=== PATIENT | female | born 1960 | race Caucasian/White ===

== ENCOUNTER → 2017-07-05 | Outpatient (CLI) | payer MEDICARE ==
[~2017-07-05] MED LIST: ALBU90OI INH; ALBU90OI6 INH; ASPI325; ASPI325 PO; CENTRUM SILVER1 EAC3 PO; CITA20 PO; CYAN1000 PO; DIPH50 PO; GEMF600; HYDACE5 PO; INS70/30I; INS70/30I SC; LEVO750 PO; LISHYD1012; LORA1 PO; METF500 PO; METO50 PO; OMEP40CA12 PO; OXYACE5T PO; Percocet 5-3251 EACH PO; RANI150 PO; RXLORA1 PO; UNKNOWN ANXIETY MED; UNKNOWN HTN MED
[2017-07-06 12:25] LABS: Protein, Urine Quantitative 69.6 mg/dL (0.0-11.9)
== END ==
LOC: LAB SHORT 10:40
PROVIDERS: Internal Medicine Nephrology
DX: N18.2 Chronic kidney disease, stage 2 (mild) (principal); D63.1 Anemia in chronic kidney disease; N25.81 Secondary hyperparathyroidism of renal origin; E55.9 Vitamin D deficiency, unspecified; E78.00 Pure hypercholesterolemia, unspecified
CPT/HCPCS: 81050; 82043; 84156

== ENCOUNTER → 2017-09-03 | Outpatient (CLI) | payer MEDICARE ==
[2017-09-03 18:28] LABS: Appearance, Urine Clear (Clear); Bilirubin, Urine Neg (Neg); Blood, Urine 2+ (Neg); Color, Urine Yellow (P-Yellow); Glucose Qualitative, Urine 4+ (Neg); Ketones, Urine Neg (Neg); Leukocyte Esterase, Urine Neg (Neg); Nitrite, Urine Neg (Neg); Protein, Urine 3+ (Neg); Urobilinogen, Urine NORM (Normal)
[2017-09-03 18:47] LABS: Bacteria Not Seen /hpf; Red Blood Cells, Urine 0-2 /hpf (0-2); Squamous Epithelial Cells Few /hpf (Few)
== END ==
LOC: LAB SHORT 14:21 → LAB 14:21
PROVIDERS: Nurse Practitioner Family
DX: N39.0 Urinary tract infection, site not specified (principal)
CPT/HCPCS: 81001

== ENCOUNTER → 2017-09-15 | Outpatient (CLI) | payer MEDICARE ==
[2017-09-15 14:04] LABS: Source, Urine Clean Catch
[2017-09-15 16:11] LABS: Bilirubin, Urine Neg (Neg); Blood, Urine 2+ (Neg); Glucose Qualitative, Urine 4+ (Neg); Ketones, Urine Neg (Neg); Leukocyte Esterase, Urine Neg (Neg); Nitrite, Urine Neg (Neg); Protein, Urine 3+ (Neg); Urobilinogen, Urine NORM (Normal)
[2017-09-15 16:21] LABS: Appearance, Urine Clear (Clear); Color, Urine Yellow (P-Yellow)
[2017-09-15 16:23] LABS: Bacteria Few /hpf; Squamous Epithelial Cells Few /hpf (Few)
== END ==
LOC: OLS 14:02 → LAB SHORT 14:02
PROVIDERS: Nurse Practitioner Family
DX: N39.0 Urinary tract infection, site not specified (principal)
CPT/HCPCS: 81001

== ENCOUNTER → 2017-09-28 | Outpatient (CLI) | payer MEDICARE ==
[2017-09-28 15:11] LABS: Source, Urine Clean Catch
[2017-09-28 16:03] LABS: Bilirubin, Urine Neg (Neg); Blood, Urine 2+ (Neg); Glucose Qualitative, Urine 4+ (Neg); Ketones, Urine Neg (Neg); Leukocyte Esterase, Urine Neg (Neg); Nitrite, Urine Neg (Neg); Protein, Urine 3+ (Neg); Urobilinogen, Urine NORM (Normal)
[2017-09-28 16:32] LABS: Appearance, Urine Clear (Clear); Color, Urine Yellow (P-Yellow)
[2017-09-28 16:35] LABS: Bacteria Not Seen /hpf; Red Blood Cells, Urine Not Seen /hpf (0-2); Squamous Epithelial Cells Not Seen /hpf (Few); White Blood Cells, Urine Not Seen /hpf (0-5)
== END ==
LOC: LAB SHORT 15:08 → OLS 15:08
PROVIDERS: Family Medicine
DX: N39.0 Urinary tract infection, site not specified (principal)
CPT/HCPCS: 81001

== ENCOUNTER 2018-02-18 15:57 | Emergency (ER) | payer MEDICARE ==
[~2018-02-18] VITALS: Ht 165.1 cm; Wt 111.1 kg
== END 2018-02-18 18:03 | disposition home or self-care (01) ==
LOC: ER 15:57
DX: S60.222A Contusion of left hand, initial encounter (principal); E11.9 Type 2 diabetes mellitus without complications; F41.9 Anxiety disorder, unspecified; K21.9 Gastro-esophageal reflux disease without esophagitis; G40.909 Epilepsy, unspecified, not intractable, without status epilepticus; Z91.038 Other insect allergy status; Z88.5 Allergy status to narcotic agent; Z88.8 Allergy status to other drugs, medicaments and biological substances; Z79.899 Other long term (current) drug therapy; Z79.4 Long term (current) use of insulin; Z79.82 Long term (current) use of aspirin; Z79.51 Long term (current) use of inhaled steroids; W18.30XA Fall on same level, unspecified, initial encounter
CPT/HCPCS: 73130; 99283-25

== ENCOUNTER 2019-09-01 16:42 | Emergency (ER) | payer MEDICARE, OTHER ==
[~2019-09-01] VITALS: Ht 165.1 cm; Wt 111.1 kg
[2019-09-01] MEDS ORDERED: Durezol5 ML (18:00)
[2019-09-01] MEDS ORDERED: ATOR20 PO (18:00)
[2019-09-01] MEDS ORDERED: FENOFIBRATE145 MG PO (18:00)
[2019-09-01] MEDS ORDERED: METFORMIN HCL500 M2 PO (18:00)
[2019-09-01] MEDS ORDERED: PREGABALIN75 MG PO (18:00)
[2019-09-01] MEDS ORDERED: [UNRECOGNIZED DRUG - OTHER] IO (18:01)
[2019-09-01 18:06] LABS: BASOPHILS ABSOLUTE AUTO 0.07 K/mm3 (0.00-0.23); BASOPHILS PERCENT AUTO 1 % (0-2); EOSINOPHILS ABSOLUTE AUTO 0.18 K/mm3 (0.00-0.68); EOSINOPHILS PERCENT AUTO 1 % (0-6); Hematocrit 41.2 % (33.0-51.0); Hemoglobin 13.7 g/dL (11.5-16.0); IMMATURE GRAN ABSOLUTE AUTO 0.06 K/mm3 (0.00-0.10); IMMATURE GRAN PERCENT AUTO 1 % (0-1); LYMPHOCYTES ABSOLUTE AUTO 2.76 K/mm3 (0.84-5.20); LYMPHOCYTES PERCENT AUTO 21 % (21-46); MONOCYTES ABSOLUTE AUTO 0.64 K/mm3 (0.16-1.47); MONOCYTES PERCENT AUTO 5 % (4-13); Mean Corpuscular HGB 28.3 pg (26.0-34.0); Mean Corpuscular HGB Conc 33.3 g/dL (31.5-36.5); Mean Corpuscular Volume 85 fL (80-100); Mean Platelet Volume 10.4 fL (9.1-12.4); NEUTROPHILS ABSOLUTE AUTO 9.25 K/mm3 (1.96-9.15); NEUTROPHILS PERCENT AUTO 71 % (41-73); Platelet Count 359 K/mm3 (150-400); RDW Coefficient Variation 12.8 % (11.7-14.2); RDW Standard Deviation 39.2 fL (35.1-46.3); Red Blood Cell Count 4.84 M/mm3 (3.80-5.20); White Blood Cell Count 12.96 K/mm3 (4.00-11.30)
[2019-09-01 18:20] LABS: International Normalized Ratio 0.93
[2019-09-01 18:46] LABS: Albumin, Blood 3.2 g/dL (3.4-5.0); Albumin/Globulin Ratio 0.7 (0.8-1.8); Bilirubin, Total 0.2 mg/dL (0.1-1.0); Bun/Creatinine Ratio 16.1 (12.0-20.0); Calcium, Blood 9.2 mg/dL (8.5-10.1); Creatinine, Blood 1.37 mg/dL (0.40-1.00); Globulin, Blood 4.7 g/dL (2.2-4.0); Potassium, Blood 4.2 mmol/L (3.5-5.5); Total Protein, Blood 7.9 g/dL (6.4-8.2)
== END 2019-09-01 21:27 | disposition home or self-care (01) ==
LOC: ER 16:42
PROVIDERS: Physician Assistant
DX: G45.9 Transient cerebral ischemic attack, unspecified (principal); E11.9 Type 2 diabetes mellitus without complications; F41.9 Anxiety disorder, unspecified; G40.909 Epilepsy, unspecified, not intractable, without status epilepticus; I10 Essential (primary) hypertension; K21.9 Gastro-esophageal reflux disease without esophagitis; Z88.5 Allergy status to narcotic agent; Z91.030 Bee allergy status; Z88.8 Allergy status to other drugs, medicaments and biological substances; Z79.4 Long term (current) use of insulin; Z79.82 Long term (current) use of aspirin; Z79.899 Other long term (current) drug therapy
CPT/HCPCS: 36415; 70450; 80053; 82947; 85025; 85610; 93005; 93010; 96374; 96375; 99284-25; J1885; J2550

== ENCOUNTER → 2020-06-19 | Outpatient (CLI) | payer MEDICARE ==
[~2020-06-19] MED LIST changes: +AMLODIPINE BES2.5 MG PO; +ASPIR 8181 M1 PO; +ATOR20 PO; +ATORVASTATIN CA40 MG PO; +AZIT250 PO; +BASAGLAR K100 UNIT/1 SC; +CYCL10 PO; +Catapres0.1 MG PO; +Durezol5 ML; +FENO145 PO; +FENOFIBRATE145 MG PO; +FISH OIL 1,2001 EAC1 PO; +METFORMIN HCL1000 M2 PO; +METFORMIN HCL500 M2 PO; +NITROGLYCERIN0.4 M3 PO; +Norco 7.5-3251 EACH PO; +OMEP20ER PO; +ONDA4ODT MM; +PANTOPRAZOLE SO40 M2 PO; +PRED20 PO; +PREG50 PO; +PREGABALIN75 MG PO; +Prinivil10 MG PO; +THERA-D2000 UNIT; +[UNRECOGNIZED DRUG - OTHER] IO
[2020-06-19 21:51] LABS: Microalbumin, Urine Quant. >6800.000 mg/L (0.000-20.000)
== END ==
LOC: LAB 12:15 → LAB SHORT 12:15
PROVIDERS: Family Medicine
DX: E78.2 Mixed hyperlipidemia (principal)
CPT/HCPCS: 81050; 82043

== ENCOUNTER 2020-08-01 08:28 | Emergency (ER) | payer MEDICARE ==
[~2020-08-01] VITALS: Ht 165.1 cm; Wt 112.5 kg
[~2020-08-01 08:28] MED LIST changes: -AZIT250 PO; -Catapres0.1 MG PO; -PRED20 PO; -THERA-D2000 UNIT
[2020-08-01 09:52] LABS: BASOPHILS ABSOLUTE AUTO 0.08 K/mm3 (0.00-0.23); BASOPHILS PERCENT AUTO 1 % (0-2); EOSINOPHILS PERCENT AUTO 3 % (0-6); Hemoglobin 11.2 g/dL (11.5-16.0); IMMATURE GRAN ABSOLUTE AUTO 0.09 K/mm3 (0.00-0.10); IMMATURE GRAN PERCENT AUTO 1 % (0-1); LYMPHOCYTES ABSOLUTE AUTO 2.76 K/mm3 (0.84-5.20); LYMPHOCYTES PERCENT AUTO 30 % (21-46); MONOCYTES ABSOLUTE AUTO 0.63 K/mm3 (0.16-1.47); MONOCYTES PERCENT AUTO 7 % (4-13); Mean Corpuscular HGB 28.3 pg (26.0-34.0); Mean Corpuscular HGB Conc 32.9 g/dL (31.5-36.5); Mean Corpuscular Volume 86 fL (80-100); Mean Platelet Volume 11.3 fL (9.1-12.4); NEUTROPHILS ABSOLUTE AUTO 5.21 K/mm3 (1.96-9.15); NEUTROPHILS PERCENT AUTO 58 % (41-73); Platelet Count 349 K/mm3 (150-400); RDW Coefficient Variation 13.2 % (11.7-14.2); RDW Standard Deviation 41.1 fL (35.1-46.3); Red Blood Cell Count 3.96 M/mm3 (3.80-5.20); White Blood Cell Count 9.07 K/mm3 (4.00-11.30)
[2020-08-01 10:01] LABS: Alanine Aminotransfer (ALT/SGP 26 U/L (12-78); Albumin, Blood 2.9 g/dL (3.4-5.0); Albumin/Globulin Ratio 0.8 (0.8-1.8); Alk Phos 50 U/L (50-136); Anion Gap 6 mmol/L (6-16); Aspartate Aminotrans (AST/SGOT 22 U/L (12-37); Bilirubin, Total 0.3 mg/dL (0.1-1.0); Blood Urea Nitrogen 27 mg/dL (8-24); Bun/Creatinine Ratio 17.3 (12.0-20.0); CO2, Blood 24 mmol/L (21-32); Calcium, Blood 8.7 mg/dL (8.5-10.1); Chloride, Blood 113 mmol/L (98-108); Creatinine, Blood 1.56 mg/dL (0.40-1.00); Globulin, Blood 3.7 g/dL (2.2-4.0); Glomerular Filtration Rate 36 (60-); Glucose, Blood 254 mg/dL (70-99); Potassium, Blood 4.1 mmol/L (3.5-5.5); Sodium, Blood 143 mmol/L (136-145); Total Protein, Blood 6.6 g/dL (6.4-8.2); Troponin I <0.015 ng/mL (0.000-0.040)
[2020-08-01] MEDS ORDERED: Catapres0.1 MG PO (12:57)
[2020-08-01] MEDS ORDERED: ALBU90OI INH (13:25)
[2020-08-01] MEDS ORDERED: PRED20 PO (13:25)
[2020-08-01] MEDS ORDERED: AZIT250 PO (13:25)
== END 2020-08-01 13:30 | disposition home or self-care (01) ==
LOC: ER 08:28
PROVIDERS: Emergency Medicine
DX: J44.0 Chronic obstructive pulmonary disease with (acute) lower respiratory infection (principal); J20.9 Acute bronchitis, unspecified; E11.9 Type 2 diabetes mellitus without complications; I10 Essential (primary) hypertension; Z79.84 Long term (current) use of oral hypoglycemic drugs; Z79.899 Other long term (current) drug therapy
CPT/HCPCS: 36415; 71045; 71260; 80053; 83880; 84484; 85025; 85379; 93005; 93010; 94640; 96374-59; 99285-25; A9270; J2930; Q9967

== ENCOUNTER → 2020-09-25 | Outpatient (CLI) | payer MEDICARE ==
[~2020-09-25] MED LIST changes: +AZIT250 PO; +Catapres0.1 MG PO; +PRED20 PO; +THERA-D2000 UNIT
[2020-09-25 19:47] LABS: Protein, Urine Quantitative 913.7 mg/dL (0.0-11.9)
== END | disposition home or self-care (01) ==
LOC: LAB SHORT 16:27 → PLD 16:27
PROVIDERS: Internal Medicine Nephrology
DX: N18.30 Chronic kidney disease, stage 3 unspecified (principal); D63.1 Anemia in chronic kidney disease; D50.9 Iron deficiency anemia, unspecified; N25.81 Secondary hyperparathyroidism of renal origin; E55.9 Vitamin D deficiency, unspecified; E78.00 Pure hypercholesterolemia, unspecified; D51.8 Other vitamin B12 deficiency anemias; D52.8 Other folate deficiency anemias; R76.9 Abnormal immunological finding in serum, unspecified; R94.5 Abnormal results of liver function studies; R94.6 Abnormal results of thyroid function studies
CPT/HCPCS: 82043; 82570; 84156

== ENCOUNTER 2020-09-26 06:49 | Day surgery (SDC) | payer MEDICARE ==
[~2020-09-26] VITALS: Ht 165.1 cm; Wt 111.7 kg
[~2020-09-26 06:49] MED LIST changes: -THERA-D2000 UNIT
--- NOTE | 2020-09-26 07:16 | NUR ---
09/26/20 0716 Fernanda Brunner 0710 TETRACAINE DROP PLACED IN LEFT EYE BY [facility] PER ORDERS. 0715 PLEDGET PLACED IN LEFT EYE PER ORDERS BY [facility].
[2020-09-26] MEDS ORDERED: THERA-D2000 UNIT (07:22)
== END 2020-09-26 08:54 | disposition home or self-care (01) ==
LOC: ORSCSDS 06:49
PROVIDERS: Ophthalmology
PROC: 08RK3JZ Replacement of Left Lens with Synthetic Substitute, Percutaneous Approach (ICD-10-PCS; principal; 2020-09-26 08:00)
DX: H25.12 Age-related nuclear cataract, left eye (principal); I10 Essential (primary) hypertension; E11.9 Type 2 diabetes mellitus without complications; K21.9 Gastro-esophageal reflux disease without esophagitis; G40.909 Epilepsy, unspecified, not intractable, without status epilepticus; E66.01 Morbid (severe) obesity due to excess calories; Z68.41 Body mass index [BMI] 40.0-44.9, adult; Z79.4 Long term (current) use of insulin; Z79.899 Other long term (current) drug therapy
CPT/HCPCS: 82947; A9270; J2001; J2250; J3301; J7040; V2632

== ENCOUNTER 2020-11-27 13:04 | Emergency (ER) | payer MEDICARE ==
[~2020-11-27] VITALS: Ht 165.1 cm; Wt 99.8 kg
[~2020-11-27 13:04] MED LIST changes: +THERA-D2000 UNIT
[2020-11-27 14:15] LABS: BASOPHILS ABSOLUTE AUTO 0.11 K/mm3 (0.00-0.23); BASOPHILS PERCENT AUTO 1 % (0-2); EOSINOPHILS PERCENT AUTO 2 % (0-6); Hematocrit 37.2 % (33.0-51.0); Hemoglobin 12.7 g/dL (11.5-16.0); IMMATURE GRAN ABSOLUTE AUTO 0.04 K/mm3 (0.00-0.10); IMMATURE GRAN PERCENT AUTO 0 % (0-1); LYMPHOCYTES ABSOLUTE AUTO 2.82 K/mm3 (0.84-5.20); LYMPHOCYTES PERCENT AUTO 26 % (21-46); MONOCYTES ABSOLUTE AUTO 0.68 K/mm3 (0.16-1.47); MONOCYTES PERCENT AUTO 6 % (4-13); Mean Corpuscular HGB 28.6 pg (26.0-34.0); Mean Corpuscular HGB Conc 34.1 g/dL (31.5-36.5); Mean Corpuscular Volume 84 fL (80-100); Mean Platelet Volume 10.4 fL (9.1-12.4); NEUTROPHILS ABSOLUTE AUTO 6.88 K/mm3 (1.96-9.15); NEUTROPHILS PERCENT AUTO 64 % (41-73); Platelet Count 359 K/mm3 (150-400); RDW Standard Deviation 39.2 fL (35.1-46.3); Red Blood Cell Count 4.44 M/mm3 (3.80-5.20); White Blood Cell Count 10.73 K/mm3 (4.00-11.30)
[2020-11-27 14:29] LABS: Albumin, Blood 3.1 g/dL (3.4-5.0); Albumin/Globulin Ratio 0.7 (0.8-1.8); Bilirubin, Total 0.3 mg/dL (0.1-1.0); Bun/Creatinine Ratio 9.7 (12.0-20.0); Calcium, Blood 9.5 mg/dL (8.5-10.1); Creatinine, Blood 1.96 mg/dL (0.40-1.00); Globulin, Blood 4.2 g/dL (2.2-4.0); Potassium, Blood 3.8 mmol/L (3.5-5.5); Total Protein, Blood 7.3 g/dL (6.4-8.2)
[2020-11-27 14:44] LABS: International Normalized Ratio 0.9; Prothrombin Time Results 9.8 Sec (9.7-11.5)
== END 2020-11-27 15:09 | disposition home or self-care (01) ==
LOC: ER 13:04
PROVIDERS: Physician Assistant
DX: R20.2 Paresthesia of skin (principal); E11.9 Type 2 diabetes mellitus without complications; I10 Essential (primary) hypertension; K21.9 Gastro-esophageal reflux disease without esophagitis; Z88.5 Allergy status to narcotic agent; Z88.8 Allergy status to other drugs, medicaments and biological substances; Z79.4 Long term (current) use of insulin; Z79.82 Long term (current) use of aspirin; Z91.030 Bee allergy status; Z79.899 Other long term (current) drug therapy
CPT/HCPCS: 36415; 70450; 80053; 82947; 85025; 85610; 93005; 93010; 99284-25

== ENCOUNTER → 2021-02-19 | Outpatient (CLI) | payer MEDICARE ==
[2021-02-22 20:17] LABS: Protein, Urine Quantitative 502.5 mg/dL (0.0-11.9)
== END | disposition home or self-care (01) ==
LOC: LAB SHORT 17:57
PROVIDERS: Internal Medicine Nephrology
DX: N18.30 Chronic kidney disease, stage 3 unspecified (principal); D63.1 Anemia in chronic kidney disease; N25.81 Secondary hyperparathyroidism of renal origin; E55.9 Vitamin D deficiency, unspecified; E78.00 Pure hypercholesterolemia, unspecified; R76.9 Abnormal immunological finding in serum, unspecified; R94.5 Abnormal results of liver function studies; R94.6 Abnormal results of thyroid function studies
CPT/HCPCS: 81050; 82043; 82570; 84156

== ENCOUNTER → 2021-04-19 | Outpatient (CLI) | payer MEDICARE ==
[2021-04-19 16:58] LABS: Appearance, Urine Clear (Clear); Color, Urine Yellow (P-Yellow); Source, Urine Clean Catch; Specific Gravity, Urine 1.015 (1.003-1.022)
[2021-04-19 16:59] LABS: Bilirubin, Urine Neg (Neg); Blood, Urine 1+ (Neg); Glucose Qualitative, Urine 3+ (Normal); Ketones, Urine Neg (Neg); Leukocyte Esterase, Urine Neg (Neg); Nitrite, Urine Neg (Neg); Protein, Urine 3+ (Neg); Urobilinogen, Urine NORM (Normal)
[2021-04-19 17:00] LABS: Bacteria Few /hpf; Red Blood Cells, Urine Rare /hpf (0-2); Renal Epithelial Few /hpf (0-Rare); Squamous Epithelial Cells Mod /hpf (Few)
== END | disposition home or self-care (01) ==
LOC: LAB SHORT 16:25 → LAB 16:25
PROVIDERS: Family Medicine
DX: R35.0 Frequency of micturition (principal)
CPT/HCPCS: 81001

== ENCOUNTER → 2021-04-23 | Outpatient (CLI) | payer MEDICARE ==
[2021-04-25 09:54] LABS: Stool Occult Bld Immuno 1 Negative (NEGATIVE)
== END | disposition home or self-care (01) ==
LOC: LAB SHORT 18:00
PROVIDERS: Family Medicine
DX: Z12.11 Encounter for screening for malignant neoplasm of colon (principal)
CPT/HCPCS: 82274

== ENCOUNTER 2021-07-21 14:06 | Emergency (ER) | payer MEDICARE ==
[~2021-07-21] VITALS: Ht 165.1 cm; Wt 94.3 kg
[2021-07-21 15:04] LABS: Albumin, Blood 2.5 g/dL (3.4-5.0); Albumin/Globulin Ratio 0.6 (0.8-1.8); Bilirubin, Total 0.2 mg/dL (0.1-1.0); Calcium, Blood 8.7 mg/dL (8.5-10.1); Creatinine, Blood 2.25 mg/dL (0.40-1.00); Globulin, Blood 4.3 g/dL (2.2-4.0); Potassium, Blood 4.8 mmol/L (3.5-5.5); Total Protein, Blood 6.8 g/dL (6.4-8.2)
[2021-07-21 15:34] LABS: BASOPHILS PERCENT AUTO 1 % (0-2); EOSINOPHILS ABSOLUTE AUTO 0.17 K/mm3 (0.00-0.68); EOSINOPHILS PERCENT AUTO 2 % (0-6); Hematocrit 37.5 % (33.0-51.0); Hemoglobin 12.6 g/dL (11.5-16.0); IMMATURE GRAN ABSOLUTE AUTO 0.05 K/mm3 (0.00-0.10); IMMATURE GRAN PERCENT AUTO 0 % (0-1); LYMPHOCYTES ABSOLUTE AUTO 2.16 K/mm3 (0.84-5.20); LYMPHOCYTES PERCENT AUTO 19 % (21-46); MONOCYTES PERCENT AUTO 5 % (4-13); Mean Corpuscular HGB 28.3 pg (26.0-34.0); Mean Corpuscular HGB Conc 33.6 g/dL (31.5-36.5); Mean Corpuscular Volume 84 fL (80-100); Mean Platelet Volume 11.1 fL (9.1-12.4); NEUTROPHILS ABSOLUTE AUTO 8.34 K/mm3 (1.96-9.15); NEUTROPHILS PERCENT AUTO 73 % (41-73); Platelet Count 283 K/mm3 (150-400); RDW Coefficient Variation 12.8 % (11.7-14.2); RDW Standard Deviation 39.4 fL (35.1-46.3); Red Blood Cell Count 4.46 M/mm3 (3.80-5.20); White Blood Cell Count 11.42 K/mm3 (4.00-11.30)
[2021-07-21] MEDS ORDERED: Norco 5-325 Ta1 EACH PO (16:34)
== END 2021-07-21 17:27 | disposition home or self-care (01) ==
LOC: ER 14:06
PROVIDERS: Physician Assistant
DX: S42.255A Nondisplaced fracture of greater tuberosity of left humerus, initial encounter for closed fracture (principal); E11.9 Type 2 diabetes mellitus without complications; I10 Essential (primary) hypertension; G40.909 Epilepsy, unspecified, not intractable, without status epilepticus; K21.9 Gastro-esophageal reflux disease without esophagitis; Z86.73 Personal history of transient ischemic attack (TIA), and cerebral infarction without residual deficits; Z88.5 Allergy status to narcotic agent; Z91.030 Bee allergy status; Z88.8 Allergy status to other drugs, medicaments and biological substances; Z79.84 Long term (current) use of oral hypoglycemic drugs; Z79.899 Other long term (current) drug therapy; Z79.4 Long term (current) use of insulin; Z79.82 Long term (current) use of aspirin; W19.XXXA Unspecified fall, initial encounter
CPT/HCPCS: 29105; 36415; 73030; 80053; 82550; 85025; 93005; 93010; 99284-25; A9270

== ENCOUNTER → 2022-05-09 | Outpatient (CLI) | payer MEDICARE, OTHER ==
[~2022-05-09] MED LIST changes: +ASPI81CH PO; +Acetaminophen325 M1 PO; +CLOP75 PO; +DICLOFENAC SOD100 GM TOP; +ELIQUIS2.5 MG PO; +ESCI20 PO; +ESCITALOPRAM OX20 MG PO; +INSULANPEN SC; +LOSA25 PO; +NITR.4SL SL; +NOVOLOG FL100 UNIT/3; +Norco 5-325 Ta1 EACH PO; +ONDA4ODT SL; +PROTONIX40 M9 PO
[2022-05-18 17:07] LABS: HPV 16 Negative (Negative); HPV 18 Negative (Negative); HPV OTHER HR TYPES Negative (Negative)
== END | disposition home or self-care (01) ==
LOC: LAB 07:40 → LAB SHORT 07:40
PROVIDERS: Family Medicine
DX: Z01.419 Encounter for gynecological examination (general) (routine) without abnormal findings (principal)
CPT/HCPCS: 87624; G0145

== ENCOUNTER 2022-09-18 10:03 | Inpatient (IN) | payer MEDICARE ==
[~2022-09-18] VITALS: Ht 165.1 cm; Wt 103.2 kg
[2022-09-18] VITALS (13 sets, daily range): BP systolic 81–193; BP diastolic 50–80
[~2022-09-18 10:03] MED LIST changes: +AMLO5 PO; -AMLODIPINE BES2.5 MG PO; +ATOR80 PO; -ATORVASTATIN CA40 MG PO; -NOVOLOG FL100 UNIT/3; +NOVOLOG FL100 UNIT/3 SC; +PANT40 PO; -PROTONIX40 M9 PO
[2022-09-18 10:50] LABS: Calcium, Ionized (POC) 1.22 mmol/L (1.10-1.46); Chloride (POC) 109 mmol/L (98-108); Creatinine (POC) 4.2 mg/dL (0.6-1.0); Glucose (ISTAT POC) 117 mg/dL (70-99); Hemoglobin (POC) 9.9 g/dL (12.0-16.0); Potassium (POC) 5.9 mmol/L (3.5-5.5); Sodium (POC) 139 mmol/L (135-148); Total CO2 (POC) 23 mmol/L (21-32)
[2022-09-18 11:02] LABS: BASOPHILS ABSOLUTE AUTO 0.08 K/mm3 (0.00-0.23); BASOPHILS PERCENT AUTO 1 % (0-2); EOSINOPHILS ABSOLUTE AUTO 0.33 K/mm3 (0.00-0.68); EOSINOPHILS PERCENT AUTO 3 % (0-6); Hematocrit 31.2 % (33.0-51.0); Hemoglobin 10.4 g/dL (11.5-16.0); IMMATURE GRAN ABSOLUTE AUTO 0.09 K/mm3 (0.00-0.10); IMMATURE GRAN PERCENT AUTO 1 % (0-1); LYMPHOCYTES ABSOLUTE AUTO 2.59 K/mm3 (0.84-5.20); LYMPHOCYTES PERCENT AUTO 24 % (21-46); MONOCYTES ABSOLUTE AUTO 0.55 K/mm3 (0.16-1.47); MONOCYTES PERCENT AUTO 5 % (4-13); Mean Corpuscular HGB 29.1 pg (26.0-34.0); Mean Corpuscular HGB Conc 33.3 g/dL (31.5-36.5); Mean Corpuscular Volume 87 fL (80-100); Mean Platelet Volume 9.7 fL (9.1-12.4); NEUTROPHILS ABSOLUTE AUTO 7.09 K/mm3 (1.96-9.15); NEUTROPHILS PERCENT AUTO 66 % (41-73); NRBC ABSOLUTE 0.02 K/mm3 (0.00-0.02); NRBC Auto 0.2 /100 WBC (0.0-0.2); Platelet Count 288 K/mm3 (150-400); RDW Coefficient Variation 13.4 % (11.7-14.2); RDW Standard Deviation 42.1 fL (35.1-46.3); Red Blood Cell Count 3.58 M/mm3 (3.80-5.20); White Blood Cell Count 10.73 K/mm3 (4.00-11.30)
[2022-09-18 11:24] LABS: Bun/Creatinine Ratio 13.8 (12.0-20.0); Calcium, Blood 8.7 mg/dL (8.5-10.1); Creatinine, Blood 3.76 mg/dL (0.40-1.00); Potassium, Blood 5.7 mmol/L (3.5-5.5)
[2022-09-18 11:29] LABS: International Normalized Ratio 1.01; Prothrombin Time Results 10.6 Sec (9.7-11.5)
[2022-09-18] MEDS ORDERED: BASAGLAR K100 UNIT/1 SC (16:25)
[2022-09-18] MEDS ORDERED: MULVITA PO (16:29)
[2022-09-18] MEDS ORDERED: CARV3.125 PO (16:31)
--- NOTE | 2022-09-18 17:16 | NUR ---
SHIFT ASSESSMENT PATIENT ARRIVED ON FLOOR AT 1405. AO3, UNABLE TO STATE DATE OR DAY OF WEEK. DENIES PAIN. NEW PORT TO UPPER CHEST PLACED THIS AFTERNOON, CLEAN AND DRY, TRANSPARENT DRESSING IN PLACE. DENIES ANY CHEST PAIN OR SHORTNESS OF BREATH AT THIS TIME. WILL CONTINUE TO MONITOR.
--- NOTE | 2022-09-18 17:42 | NUR ---
"Spirtual Care | Pt. Request Pt. is awake in bed, getting dialysis when she welcomes my visit. Child Welfare Caseworker is present. Pt. is pleasant. Pt. does verbalize some theological questions. Consider matters of zackary and belief. Pt. displays evidence of acceptance and agreement. Facilitate a short life review and listen with empathy and a calming presence. Prayed with Pt. Pt. verbalized gratitude for the spiritual care visit, and welcomed this concrete form setter and finisher to return in the morning."
--- NOTE | 2022-09-18 18:20 | NUR ---
THIS DIRECTOR OF PLANT OPERATIONS HAS REVIEWED AND AGREES WITH ALL NOTES AND ASSESSMENTS BY YONY WALLY.
--- NOTE | 2022-09-18 19:20 | NUR ---
EVENT NOTE RAPID REPSONSE TEAM CALLED AT 1845 BY DIALYSIS NURSE. PATIENT HAD ALTERED LOC DURING FIRST DIALYSIS TREATMENT WHILE UP TO THE COMMODE. PATIENT ASSISTED BACK TO BED. DR BRUNNER ORDERED SERUM POTASSIUM AND TELEMETRY. PATIENT RETURNED TO BASELINE MENTAL STATUS AND BLOOD PRESSURE AFTER LAYING FLAT IN BED FOR SEVERAL MINUTES.
[2022-09-19] VITALS (16 sets, daily range): BP systolic 83–187; BP diastolic 49–108
[2022-09-19 05:27] LABS: Hematocrit 30.8 % (33.0-51.0); Hemoglobin 10.1 g/dL (11.5-16.0)
[2022-09-19 06:15] LABS: Albumin, Blood 2.6 g/dL (3.4-5.0); Anion Gap 2 mmol/L (6-16); Blood Urea Nitrogen 39 mg/dL (8-24); Bun/Creatinine Ratio 12.6 (12.0-20.0); CO2, Blood 26 mmol/L (21-32); Calcium, Blood 8.4 mg/dL (8.5-10.1); Chloride, Blood 110 mmol/L (98-108); Creatinine, Blood 3.09 mg/dL (0.40-1.00); Glomerular Filtration Rate 17 (60-); Glucose, Blood 109 mg/dL (70-99); Magnesium, Blood 1.8 mg/dL (1.6-2.4); Phosphorus, Blood 3.9 mg/dL (2.5-4.9); Potassium, Blood 4.4 mmol/L (3.5-5.5); Sodium, Blood 138 mmol/L (136-145)
--- NOTE | 2022-09-19 07:45 | NUR ---
EVENT NOT PATIENT SCAR JUST AFTER SHIFT CHANGE. STUDENT SPECIALIST NOTING RYTHM IN 20-30 RANGE OCCAISONAL ASYSTOLE, PATIENT AWAKE CO DIZZY AND LIGHTHEADED AND VOMITING, JUST CAME BACK FROM BATHROOM. BP 200/95, EKG OBTAINED. PATIENT STATES SHE IS FEELING BETTER. DR KHAN ORDERED ORTHOSTATICS BEFORE GIVING THE MIDODRINE ORDERED BY DR WALTER THIS AM. TELE MONITOR CALLED AGAIN AND STATES PATIENT WAS ASYSTOLE BUT NOW 80 BPM. BP AT 7:34AM 152/78, HR 79. PATIENT IS SCHEDULED FOR ADDITIONAL DIALYSIS TODAY. PATIENT TRANSFERRED TO PCU AND REPORT GIVEN TO ROSALINDA BHAKTA AT 7:40AM.
--- NOTE | 2022-09-19 07:55 | NUR ---
AO, VSS, CALLED APPROPRIATELY FOR MOST OF SHIFT AFTER INITIAL RAPID RESPONSE TEAM AT START OF SHIFT. DURING SHIFT CHANGE PATIENT BECAME BRADYCARDIC, NAUSEOUS AND VOMITING. PT HAD AMBULATED WITH SBA TO TOILET X2 DURING THE NIGHT WITH NO SYMPTOMS. PT TRANSFERRED FOR HIGHER LEVEL CARE.
[2022-09-19 08:49] LABS: Albumin, Blood 2.8 g/dL (3.4-5.0); Anion Gap 3 mmol/L (6-16); Blood Urea Nitrogen 37 mg/dL (8-24); Bun/Creatinine Ratio 11.5 (12.0-20.0); CO2, Blood 25 mmol/L (21-32); Calcium, Blood 8.4 mg/dL (8.5-10.1); Chloride, Blood 110 mmol/L (98-108); Creatinine, Blood 3.22 mg/dL (0.40-1.00); Glomerular Filtration Rate 16 (60-); Glucose, Blood 128 mg/dL (70-99); Magnesium, Blood 1.8 mg/dL (1.6-2.4); Phosphorus, Blood 3.7 mg/dL (2.5-4.9); Potassium, Blood 4.7 mmol/L (3.5-5.5); Sodium, Blood 138 mmol/L (136-145)
--- NOTE | 2022-09-19 10:42 | NUR ---
Pt. is awake in bed and welcomes my visit. Pt. is pleasant, and is very aware of her crashing last evening during dialysis. Re-esablish rapport. Pt. displays evidence of being engaged and complliant with her care. Prayed with Pt. Pt. verbalized gratitude for the spiritual care visit. Will remain available to the Pt.
--- NOTE | 2022-09-19 11:19 | NUR ---
THIS SPECIALTY THERAPIST HAS REVIEWED WALLY RNs NOTE AND AGREES WITH IT.
--- NOTE | 2022-09-19 18:04 | NUR ---
SHIFT SUMMARY PT ARRIVED FROM MEDICAL FLOOR THIS AM, REPORT RECEIVED FROM MEDICAL FLOOR RN. PT A&OX4. SP02>90% ON RA. TELEMETRY READS NSR, HR 60'S-90'S. POSITIVE ORTHSTATICS. MIDODRINE GIVEN AND EKG DONE PER MD BURDEN. PT C/O OF DIZZYNESS WHEN STANDING. VOIDED W/ ASSISTANCE FWW AND GB TO BSC. NO BM THIS SHIFT. ECHO DONE THIS AM. PT TO DIALYSIS IN AFTERNOON. STATES SHE FEELS "MUCH BETTER THAN YESTERDAY" AFTER DIALYSIS. PT IN ROOM VISITING WITH FAMILY. CALL LIGHT IN REACH.
[2022-09-20 03:03] VITALS: BP 144/61
--- NOTE | 2022-09-20 03:16 | NUR ---
SHIFT SUMMARY PT IS A&OX4, HAS BEEN IN BED ALL SHIFT, AND SHE CALLS APPROPRIATELY. THE PT WAS HYPERTENSIVE AT THE START OF SHIFT AND WAS MEDICATED PER EMAR. BP HAS STABILIZED. PT HAS NOT REPORTED FEELING DIZZY OR LIGHT HEADED WHILE LAYING IN BED. SHE DENIES ANGINA, CHEST PRESSURE, SOB, AND PAIN. ON TELE SHE HAS BEEN SR, AND IS ON ROOM AIR W/ SP02 >90%. BED IS IN LOW, CALL LIGHT IS IN REACH. SEE NOTES FOR ANY UPDATES.
[2022-09-20 04:49] LABS: Hematocrit 28.1 % (33.0-51.0); Hemoglobin 9.1 g/dL (11.5-16.0)
[2022-09-20 05:16] LABS: Albumin, Blood 2.5 g/dL (3.4-5.0); Anion Gap 4 mmol/L (6-16); Blood Urea Nitrogen 33 mg/dL (8-24); Bun/Creatinine Ratio 10.6 (12.0-20.0); CO2, Blood 29 mmol/L (21-32); Calcium, Blood 8.2 mg/dL (8.5-10.1); Chloride, Blood 105 mmol/L (98-108); Creatinine, Blood 3.12 mg/dL (0.40-1.00); Glomerular Filtration Rate 16 (60-); Glucose, Blood 138 mg/dL (70-99); Magnesium, Blood 1.9 mg/dL (1.6-2.4); Phosphorus, Blood 4.1 mg/dL (2.5-4.9); Potassium, Blood 4.1 mmol/L (3.5-5.5); Sodium, Blood 138 mmol/L (136-145)
[2022-09-20 07:58] VITALS: BP 149/71
[2022-09-20 12:23] VITALS: BP 145/76
[2022-09-20 17:13] VITALS: BP 184/64
[2022-09-20 17:23] VITALS: BP 164/89
--- NOTE | 2022-09-20 17:29 | NUR ---
BP 184/59, HR 62. RE-CHECKED, 164/89, HR 64. REPORTED THIS TO DR. KHAN, ORDERS PENDING.
--- NOTE | 2022-09-20 18:53 | NUR ---
SHIFT SUMMARY: HYPERTENSIVE THIS EVENING AFTER TRANSFER FROM PCU; DR. KHAN AWARE. NO EVENTS ON TELEMETRY, SR 60-70'S. PERMACATH IN RU CHEST WNL, DRESSING INTACT. DRESSING ON R NECK INCISION REINFORCED. DENIED PAIN. STILL SLIGHTLY DIZZY WHEN GETTING OOB TO BSC, BUT RECOVERS WELL. EDUCATION GIVEN FOR DIALYSIS DIET. NO CHANGES IN NEURO EXAM. IS LOOKING FORWARD TO GOING HOME SOON.
[2022-09-20 19:33] VITALS: BP 175/60
[2022-09-21] VITALS (7 sets, daily range): BP systolic 147–195; BP diastolic 60–79
--- NOTE | 2022-09-21 04:16 | NUR ---
SHIFT SUMMARY 62 YR F ADMITTED ON 09/19/22 FOR ESRD. FULL CODE. BLOOD PRESSURE GOT UP0 TO 180/73 AND PRN HYDRALAZINE WAS GIVEN. PT IS ABLE TO GET UP TO BEDSIDE COMMODE W/ 1 PERSON ASSIST. NO C/O DIZZINESS UPON STANDING. SHE HAS RESTED COMFORTABLY FOR MOST OF THIS SHIFT.
[2022-09-21 05:08] LABS: HBSAG SCREEN Negative (Negative); HCV AB Non Reactive (Non Reactive); HEP A AB, IGM Negative (Negative); HEP B CORE AB, IGM Negative (Negative)
[2022-09-21 05:30] LABS: BASOPHILS ABSOLUTE AUTO 0.05 K/mm3 (0.00-0.23); BASOPHILS PERCENT AUTO 0 % (0-2); EOSINOPHILS ABSOLUTE AUTO 0.47 K/mm3 (0.00-0.68); EOSINOPHILS PERCENT AUTO 4 % (0-6); Hematocrit 28.6 % (33.0-51.0); Hemoglobin 9.5 g/dL (11.5-16.0); IMMATURE GRAN ABSOLUTE AUTO 0.02 K/mm3 (0.00-0.10); IMMATURE GRAN PERCENT AUTO 0 % (0-1); LYMPHOCYTES ABSOLUTE AUTO 2.88 K/mm3 (0.84-5.20); LYMPHOCYTES PERCENT AUTO 25 % (21-46); MONOCYTES ABSOLUTE AUTO 0.91 K/mm3 (0.16-1.47); MONOCYTES PERCENT AUTO 8 % (4-13); Mean Corpuscular HGB 29.1 pg (26.0-34.0); Mean Corpuscular HGB Conc 33.2 g/dL (31.5-36.5); Mean Corpuscular Volume 88 fL (80-100); Mean Platelet Volume 9.7 fL (9.1-12.4); NEUTROPHILS ABSOLUTE AUTO 7.09 K/mm3 (1.96-9.15); NEUTROPHILS PERCENT AUTO 62 % (41-73); Platelet Count 287 K/mm3 (150-400); RDW Coefficient Variation 13.7 % (11.7-14.2); RDW Standard Deviation 41.8 fL (35.1-46.3); Red Blood Cell Count 3.26 M/mm3 (3.80-5.20); White Blood Cell Count 11.42 K/mm3 (4.00-11.30)
[2022-09-21 06:14] LABS: Albumin, Blood 2.7 g/dL (3.4-5.0); Anion Gap 5 mmol/L (6-16); Blood Urea Nitrogen 36 mg/dL (8-24); Bun/Creatinine Ratio 9.8 (12.0-20.0); CO2, Blood 27 mmol/L (21-32); Calcium, Blood 8.7 mg/dL (8.5-10.1); Chloride, Blood 108 mmol/L (98-108); Creatinine, Blood 3.69 mg/dL (0.40-1.00); Glomerular Filtration Rate 13 (60-); Glucose, Blood 126 mg/dL (70-99); Phosphorus, Blood 3.9 mg/dL (2.5-4.9); Potassium, Blood 4.2 mmol/L (3.5-5.5); Sodium, Blood 140 mmol/L (136-145)
--- NOTE | 2022-09-21 16:16 | NUR ---
SHIFT SUMMARY: PATIENT A&OX4. PLEASANT AND COOPERATIVE c CARE. USES CALL LIGHT APPROPRIATELY AND ABLE TO MAKE NEEDS KNOWN. HYPERTENSIVE BEGINNING OF SHIFT AND POSITIVE FOR ORTHOSTATIC. BP DROPPED ABOUT 20 POINTS FROM LAYING FLAT IN BED, TO SITTING AND STANDING. PATIENT REPORTS SLIGHT DIZZINESS BUT RECOVERED RIGHT AWAY. DR. KHAN IS AWARE OF THIS ISSUE. NIFIDEPINE DOSE WAS INCREASE TO 60 MG PO DAILY. PATIENT BP HAS IMPROVED LAST SET OF BP AT AROUND 1604 147/69 c HR OF 78 BPM. NO DIALYSIS TODAY. PATIENT DENIES CP/PRESSURE, N/V, SOB AND GENERALIZED PAIN. ON TELE, SR HR IN THE HIGH 80'S BPM c 1ST DEGREE HB. BS RANGES 121-169 THIS SHIFT. RECEIVED SCHEDULED MEDS PER EMAR. PATIENT STILL VOID c 750 MLS OF URINE, 2 UNMEASURED AND 1 INCONTINENCE VOID THIS SHIFT. VITAL SIGNS REVIEWED. PIV TO FOREARM SALINE LOCKED. CALL LIGHT IN REACH.
[2022-09-22] VITALS (19 sets, daily range): BP systolic 81–182; BP diastolic 45–90
--- NOTE | 2022-09-22 03:43 | NUR ---
SHIFT SUMMARY NOC PT A/O X 4. PLEASANT AND COOPERATIVE WITH CARE. PT HAD PERM CATH PLACED IN [facility] ON 09/18/22 TO BEGIN DIALYSIS DUE TO ESRD DX. BP STABLE 151/60. PT VOIDED X 2 BSC WITH UOP OF 550ML. PT DID NOT REPORT DIZZYNESS WHEN TRANSFERING BETWEEN BED/BSC. CBG 230 WITH ONLY SCHEDULED 18 UNITS OF LONG ACTING INSULIN ADMINISTERED. PT ON TELE AT SINUS RHYTHM HR 74 BPM. LAST DIALYSIS SESSION WAS 09/20/22. PT [facility]. PT IS CURRENTLY RESTING WITH BED IN LOWEST POSITION, AND CALL LIGHT WITHIN REACH.
[2022-09-22 05:17] LABS: BASOPHILS ABSOLUTE AUTO 0.05 K/mm3 (0.00-0.23); BASOPHILS PERCENT AUTO 1 % (0-2); EOSINOPHILS PERCENT AUTO 4 % (0-6); Hematocrit 30.8 % (33.0-51.0); Hemoglobin 10.2 g/dL (11.5-16.0); IMMATURE GRAN ABSOLUTE AUTO 0.02 K/mm3 (0.00-0.10); IMMATURE GRAN PERCENT AUTO 0 % (0-1); LYMPHOCYTES ABSOLUTE AUTO 2.53 K/mm3 (0.84-5.20); LYMPHOCYTES PERCENT AUTO 25 % (21-46); MONOCYTES PERCENT AUTO 8 % (4-13); Mean Corpuscular HGB 29.1 pg (26.0-34.0); Mean Corpuscular HGB Conc 33.1 g/dL (31.5-36.5); Mean Corpuscular Volume 88 fL (80-100); Mean Platelet Volume 9.6 fL (9.1-12.4); NEUTROPHILS PERCENT AUTO 63 % (41-73); Platelet Count 291 K/mm3 (150-400); RDW Coefficient Variation 14.2 % (11.7-14.2); RDW Standard Deviation 42.7 fL (35.1-46.3); Red Blood Cell Count 3.51 M/mm3 (3.80-5.20)
[2022-09-22 05:36] LABS: Albumin, Blood 2.6 g/dL (3.4-5.0); Anion Gap 4 mmol/L (6-16); Blood Urea Nitrogen 43 mg/dL (8-24); Bun/Creatinine Ratio 10.6 (12.0-20.0); CO2, Blood 27 mmol/L (21-32); Calcium, Blood 8.6 mg/dL (8.5-10.1); Chloride, Blood 109 mmol/L (98-108); Creatinine, Blood 4.05 mg/dL (0.40-1.00); Glomerular Filtration Rate 12 (60-); Glucose, Blood 125 mg/dL (70-99); Phosphorus, Blood 4.9 mg/dL (2.5-4.9); Potassium, Blood 4.3 mmol/L (3.5-5.5); Sodium, Blood 140 mmol/L (136-145)
--- NOTE | 2022-09-22 09:46 | NUR ---
pt laying in bed eating breakfast, a/ox4, pleasant and cooperative with care, follows commands well, denies pain, states she slept good, lungs are clear t/o, resp even and unlabored, no cough noted, on r/a, hrr, no edema noted, ppp+1, cap refill <3 sec, vs stable, afebrile, piv site to left wrist site is clear and patent, btx4, abd flat soft nontneder, voids with out diff, skin c/w/d, abel arcos, call light in reach.
--- NOTE | 2022-09-22 19:25 | NUR ---
pt complaining about wrist piv, states it really hurting, removed intact, pt had dialysis today, v.s. remain stable, no further changes this shift. call light in reach.
[2022-09-23 03:01] VITALS: BP 163/105
[2022-09-23 03:05] VITALS: BP 152/57
--- NOTE | 2022-09-23 04:28 | NUR ---
SHIFT SUMMARY NO ACUTE CHANGES THIS SHIFT, SPOKE WITH DR. CALLAHAN AND HE SAID THEY ARE WAITING FOR A DIALYSIS BED BEFORE DISCHARGE. SHE HAD NO COMPLAINTS THIS SHIFT AND SLEPT THROUGHOUT THE NIGHT. WILL REPORT TO ONCOMING NURSE.
[2022-09-23 06:47] LABS: Albumin, Blood 2.7 g/dL (3.4-5.0); Anion Gap 4 mmol/L (6-16); Blood Urea Nitrogen 30 mg/dL (8-24); Bun/Creatinine Ratio 8.3 (12.0-20.0); CO2, Blood 28 mmol/L (21-32); Calcium, Blood 8.4 mg/dL (8.5-10.1); Chloride, Blood 100 mmol/L (98-108); Creatinine, Blood 3.62 mg/dL (0.40-1.00); Glomerular Filtration Rate 14 (60-); Glucose, Blood 118 mg/dL (70-99); Magnesium, Blood 1.9 mg/dL (1.6-2.4); Phosphorus, Blood 4.5 mg/dL (2.5-4.9); Potassium, Blood 3.9 mmol/L (3.5-5.5); Sodium, Blood 132 mmol/L (136-145)
[2022-09-23 06:53] LABS: Hematocrit 32.1 % (33.0-51.0); Hemoglobin 10.7 g/dL (11.5-16.0)
[2022-09-23 07:53] VITALS: BP 145/60
[2022-09-23] MEDS ORDERED: NIFE60ER PO (12:55)
--- NOTE | 2022-09-23 14:22 | NUR ---
PT AWAKE DURING SHIFT REPORT THIS AM. PLEASANT AND CO-OP WITH CARE. TOURS HOSTESS CALLED TO REPORT NO DIALYSIS TODAY, BUT CHAIR AVAILABLE AT [facility] FOR 0625 IN AM. PT TO GO TO [facility] TODAY @ 1500 FOR INTAKE PAPERWORK. PT NOW SCHEDULED FOR DIALYSIS M,W,F. PT UP TO BSC WITH SBA. SITTING UP TO EOB FOR MEALS. SITTING IN CHAIR AT BS LOOKING OUT WINDOW AFTER BREAKFAST. DR CALLAHAN NOTIFIED OF APPOINTMENT FOR PT AT [facility]. D/C ORDERS PLACED. MEDS FAXED PER PT CHART. PT'S SISTER NOTIFIED OF D/C AND HERE TO PICK PT UP AND TAKE HERE TO APPOINTMENT AND THEN HOME TO [facility] FOR [facility]. PT ASSISTED OUT TO CAR VIA W/C WITH ALL BELONGINGS.
== END 2022-09-23 13:41 | disposition home or self-care (01) | DRG 291 ==
LOC: ER 10:03 → MEDS 10:04 → PCU 09-19 07:36 → MEDS 09-19 13:21 → PCU 09-19 16:10 → MEDS 09-20 15:07 → ENPENDDIS 09-23 12:05 → MEDS 09-23 13:41
PROVIDERS: Emergency Medicine; Internal Medicine Nephrology; ADMIT Family Medicine
PROC: 0JH63XZ Insertion of Tunneled Vascular Access Device into Chest Subcutaneous Tissue and Fascia, Percutaneous Approach (ICD-10-PCS; principal; 2022-09-18)
PROC: 02HV33Z Insertion of Infusion Device into Superior Vena Cava, Percutaneous Approach (ICD-10-PCS; 2022-09-18)
PROC: B5181ZA Fluoroscopy of Superior Vena Cava using Low Osmolar Contrast, Guidance (ICD-10-PCS; 2022-09-18)
PROC: B548ZZA Ultrasonography of Superior Vena Cava, Guidance (ICD-10-PCS; 2022-09-18)
PROC: 5A1D70Z Performance of Urinary Filtration, Intermittent, Less than 6 Hours Per Day (ICD-10-PCS; 2022-09-19)
DX: I13.2 Hypertensive heart and chronic kidney disease with heart failure and with stage 5 chronic kidney disease, or end stage renal disease (principal); N18.6 End stage renal disease; E87.1 Hypo-osmolality and hyponatremia; E87.20 Acidosis, unspecified; E11.22 Type 2 diabetes mellitus with diabetic chronic kidney disease; F41.9 Anxiety disorder, unspecified; G89.29 Other chronic pain; M25.562 Pain in left knee; G40.909 Epilepsy, unspecified, not intractable, without status epilepticus; K21.9 Gastro-esophageal reflux disease without esophagitis; R41.3 Other amnesia; H81.09 Meniere's disease, unspecified ear; E21.3 Hyperparathyroidism, unspecified; R00.1 Bradycardia, unspecified; D63.1 Anemia in chronic kidney disease; E87.5 Hyperkalemia; I50.9 Heart failure, unspecified; E86.9 Volume depletion, unspecified; I95.9 Hypotension, unspecified; I25.10 Atherosclerotic heart disease of native coronary artery without angina pectoris; E66.9 Obesity, unspecified; E88.09 Other disorders of plasma-protein metabolism, not elsewhere classified; Z68.37 Body mass index [BMI] 37.0-37.9, adult; Z88.8 Allergy status to other drugs, medicaments and biological substances; Z86.73 Personal history of transient ischemic attack (TIA), and cerebral infarction without residual deficits; Z85.43 Personal history of malignant neoplasm of ovary; Z79.51 Long term (current) use of inhaled steroids; Z79.01 Long term (current) use of anticoagulants; Z79.82 Long term (current) use of aspirin; Z79.02 Long term (current) use of antithrombotics/antiplatelets; Z79.4 Long term (current) use of insulin; Z90.49 Acquired absence of other specified parts of digestive tract; Z90.721 Acquired absence of ovaries, unilateral; Z98.890 Other specified postprocedural states; Z79.899 Other long term (current) drug therapy; Z91.030 Bee allergy status; Z88.5 Allergy status to narcotic agent; Z90.710 Acquired absence of both cervix and uterus
CPT/HCPCS: 36415; 36558; 71045; 76937; 77001; 80047; 80048; 80069; 80074; 82330; 82947; 83735; 84132; 84484; 85014; 85018; 85025; 85610; 85730; 86317; 86704; 86850; 86900; 86901; 93005; 93010; 93306; 94760; 99152; 99285-25; A9270; C1750; C1769; C1894; G0378; J0360; J0881; J1644; J1815; J2250; J3010; J7030; J7050

== ENCOUNTER 2022-11-18 04:46 | Emergency (ER) | payer MEDICARE, OTHER ==
[~2022-11-18] VITALS: Ht 165.1 cm; Wt 90.7 kg
[~2022-11-18 04:46] MED LIST changes: +CARV3.125 PO; +MULVITA PO; +NIFE60ER PO
[2022-11-18] MEDS ORDERED: AMLO5 PO (05:16)
[2022-11-18] MEDS ORDERED: ELIQUIS2.5 MG PO (05:17)
[2022-11-18] MEDS ORDERED: Calcium Acetat667 MG PO (05:17)
[2022-11-18 05:24] LABS: BASOPHILS ABSOLUTE AUTO 0.08 K/mm3 (0.00-0.23); BASOPHILS PERCENT AUTO 1 % (0-2); EOSINOPHILS ABSOLUTE AUTO 0.34 K/mm3 (0.00-0.68); EOSINOPHILS PERCENT AUTO 3 % (0-6); Hematocrit 33.6 % (33.0-51.0); Hemoglobin 11.3 g/dL (11.5-16.0); IMMATURE GRAN ABSOLUTE AUTO 0.04 K/mm3 (0.00-0.10); IMMATURE GRAN PERCENT AUTO 0 % (0-1); LYMPHOCYTES ABSOLUTE AUTO 3.29 K/mm3 (0.84-5.20); LYMPHOCYTES PERCENT AUTO 30 % (21-46); MONOCYTES ABSOLUTE AUTO 0.85 K/mm3 (0.16-1.47); MONOCYTES PERCENT AUTO 8 % (4-13); Mean Corpuscular HGB 29.2 pg (26.0-34.0); Mean Corpuscular HGB Conc 33.6 g/dL (31.5-36.5); Mean Corpuscular Volume 87 fL (80-100); Mean Platelet Volume 10.7 fL (9.1-12.4); NEUTROPHILS ABSOLUTE AUTO 6.42 K/mm3 (1.96-9.15); NEUTROPHILS PERCENT AUTO 58 % (41-73); Platelet Count 271 K/mm3 (150-400); RDW Coefficient Variation 14.6 % (11.7-14.2); RDW Standard Deviation 45.9 fL (35.1-46.3); Red Blood Cell Count 3.87 M/mm3 (3.80-5.20); White Blood Cell Count 11.02 K/mm3 (4.00-11.30)
[2022-11-18 05:44] LABS: Bun/Creatinine Ratio 9.6 (12.0-20.0); Calcium, Blood 8.7 mg/dL (8.5-10.1); Creatinine, Blood 4.27 mg/dL (0.40-1.00); Potassium, Blood 4.1 mmol/L (3.5-5.5)
[2022-11-18 05:47] LABS: International Normalized Ratio 0.97; Prothrombin Time Results 10.2 Sec (9.7-11.5)
[2022-11-18 09:00] VITALS: BP 139/75
[2022-11-28] MEDS ORDERED: LOKELMA10 GM PO (13:59)
== END 2022-11-18 12:00 | disposition short-term general hospital (02) ==
LOC: ER 04:46
PROVIDERS: Emergency Medicine
DX: T83.021A Displacement of indwelling urethral catheter, initial encounter (principal); I25.10 Atherosclerotic heart disease of native coronary artery without angina pectoris; I12.9 Hypertensive chronic kidney disease with stage 1 through stage 4 chronic kidney disease, or unspecified chronic kidney disease; E11.22 Type 2 diabetes mellitus with diabetic chronic kidney disease; N18.9 Chronic kidney disease, unspecified; G40.909 Epilepsy, unspecified, not intractable, without status epilepticus; Z86.73 Personal history of transient ischemic attack (TIA), and cerebral infarction without residual deficits; Z85.43 Personal history of malignant neoplasm of ovary; Z88.5 Allergy status to narcotic agent; Z88.8 Allergy status to other drugs, medicaments and biological substances; Z91.030 Bee allergy status; Z79.82 Long term (current) use of aspirin; Z79.02 Long term (current) use of antithrombotics/antiplatelets; Z79.4 Long term (current) use of insulin; Z79.899 Other long term (current) drug therapy; X58.XXXA Exposure to other specified factors, initial encounter
CPT/HCPCS: 80048; 85025; 85610; 93005; 93010; 99285-25

== ENCOUNTER 2022-11-25 08:25 | Emergency (ER) | payer MEDICARE, OTHER ==
[~2022-11-25] VITALS: Ht 165.1 cm; Wt 99.8 kg
[~2022-11-25 08:25] MED LIST changes: +Calcium Acetat667 MG PO
[2022-11-25 09:03] LABS: BASOPHILS ABSOLUTE AUTO 0.09 K/mm3 (0.00-0.23); BASOPHILS PERCENT AUTO 1 % (0-2); EOSINOPHILS ABSOLUTE AUTO 0.24 K/mm3 (0.00-0.68); EOSINOPHILS PERCENT AUTO 2 % (0-6); Hematocrit 32.8 % (33.0-51.0); Hemoglobin 11.3 g/dL (11.5-16.0); IMMATURE GRAN ABSOLUTE AUTO 0.06 K/mm3 (0.00-0.10); IMMATURE GRAN PERCENT AUTO 0 % (0-1); LYMPHOCYTES ABSOLUTE AUTO 2.55 K/mm3 (0.84-5.20); LYMPHOCYTES PERCENT AUTO 18 % (21-46); MONOCYTES ABSOLUTE AUTO 0.67 K/mm3 (0.16-1.47); MONOCYTES PERCENT AUTO 5 % (4-13); Mean Corpuscular HGB 29.4 pg (26.0-34.0); Mean Corpuscular HGB Conc 34.5 g/dL (31.5-36.5); Mean Corpuscular Volume 85 fL (80-100); Mean Platelet Volume 10.6 fL (9.1-12.4); NEUTROPHILS ABSOLUTE AUTO 10.61 K/mm3 (1.96-9.15); NEUTROPHILS PERCENT AUTO 75 % (41-73); Platelet Count 288 K/mm3 (150-400); RDW Coefficient Variation 14.2 % (11.7-14.2); RDW Standard Deviation 43.8 fL (35.1-46.3); Red Blood Cell Count 3.85 M/mm3 (3.80-5.20); White Blood Cell Count 14.22 K/mm3 (4.00-11.30)
[2022-11-25 09:18] LABS: Albumin, Blood 3.2 g/dL (3.4-5.0); Albumin/Globulin Ratio 0.9 (0.8-1.8); Bilirubin, Total 0.3 mg/dL (0.1-1.0); Bun/Creatinine Ratio 11.5 (12.0-20.0); Calcium, Blood 8.9 mg/dL (8.5-10.1); Creatinine, Blood 5.92 mg/dL (0.40-1.00); Globulin, Blood 3.5 g/dL (2.2-4.0); Magnesium, Blood 2.3 mg/dL (1.6-2.4); Potassium, Blood 4.7 mmol/L (3.5-5.5); Total Protein, Blood 6.7 g/dL (6.4-8.2)
[2022-11-25 10:46] VITALS: BP 129/65
[2022-11-28] MEDS ORDERED: LOKELMA10 GM PO (13:59)
== END 2022-11-25 10:54 | disposition home or self-care (01) ==
LOC: ER 08:25
PROVIDERS: Student in an Organized Health Care Education/Training Program
DX: G40.909 Epilepsy, unspecified, not intractable, without status epilepticus (principal); I25.10 Atherosclerotic heart disease of native coronary artery without angina pectoris; I12.0 Hypertensive chronic kidney disease with stage 5 chronic kidney disease or end stage renal disease; N18.6 End stage renal disease; F17.200 Nicotine dependence, unspecified, uncomplicated; Z86.73 Personal history of transient ischemic attack (TIA), and cerebral infarction without residual deficits; Z99.2 Dependence on renal dialysis; Z85.43 Personal history of malignant neoplasm of ovary; Z91.038 Other insect allergy status; Z91.030 Bee allergy status; Z88.8 Allergy status to other drugs, medicaments and biological substances; Z88.5 Allergy status to narcotic agent; Z79.01 Long term (current) use of anticoagulants; Z79.82 Long term (current) use of aspirin; Z79.02 Long term (current) use of antithrombotics/antiplatelets; Z79.899 Other long term (current) drug therapy
CPT/HCPCS: 80053; 83735; 85025; 93005; 93010; 99284-25

== ENCOUNTER 2022-11-29 21:10 | Emergency (ER) | payer MEDICARE, OTHER ==
[~2022-11-29] VITALS: Ht 165.1 cm; Wt 95.2 kg
[~2022-11-29 21:10] MED LIST changes: +LOKELMA10 GM PO
[2022-11-29 23:43] VITALS: BP 161/61
[2022-11-29 23:58] LABS: BASOPHILS ABSOLUTE AUTO 0.09 K/mm3 (0.00-0.23); BASOPHILS PERCENT AUTO 1 % (0-2); EOSINOPHILS ABSOLUTE AUTO 0.36 K/mm3 (0.00-0.68); EOSINOPHILS PERCENT AUTO 3 % (0-6); Hematocrit 33.3 % (33.0-51.0); Hemoglobin 11.2 g/dL (11.5-16.0); IMMATURE GRAN ABSOLUTE AUTO 0.07 K/mm3 (0.00-0.10); IMMATURE GRAN PERCENT AUTO 1 % (0-1); LYMPHOCYTES ABSOLUTE AUTO 4.03 K/mm3 (0.84-5.20); LYMPHOCYTES PERCENT AUTO 30 % (21-46); MONOCYTES ABSOLUTE AUTO 0.82 K/mm3 (0.16-1.47); MONOCYTES PERCENT AUTO 6 % (4-13); Mean Corpuscular HGB 28.8 pg (26.0-34.0); Mean Corpuscular HGB Conc 33.6 g/dL (31.5-36.5); Mean Corpuscular Volume 86 fL (80-100); NEUTROPHILS ABSOLUTE AUTO 8.07 K/mm3 (1.96-9.15); NEUTROPHILS PERCENT AUTO 60 % (41-73); RDW Coefficient Variation 13.9 % (11.7-14.2); Red Blood Cell Count 3.89 M/mm3 (3.80-5.20); White Blood Cell Count 13.44 K/mm3 (4.00-11.30)
[2022-11-29 23:59] LABS: Mean Platelet Volume 10.4 fL (9.1-12.4); Platelet Count 312 K/mm3 (150-400)
[2022-11-30 00:07] LABS: Albumin, Blood 3.4 g/dL (3.4-5.0); Bilirubin, Total 0.1 mg/dL (0.1-1.0); Bun/Creatinine Ratio 12.2 (12.0-20.0); Calcium, Blood 8.8 mg/dL (8.5-10.1); Globulin, Blood 3.5 g/dL (2.2-4.0); Potassium, Blood 4.3 mmol/L (3.5-5.5); Total Protein, Blood 6.9 g/dL (6.4-8.2)
== END 2022-11-30 02:13 | disposition home or self-care (01) ==
LOC: ER 21:10
PROVIDERS: Emergency Medicine
DX: T82.42XA Displacement of vascular dialysis catheter, initial encounter (principal); I10 Essential (primary) hypertension; E11.9 Type 2 diabetes mellitus without complications; G40.909 Epilepsy, unspecified, not intractable, without status epilepticus; Z86.73 Personal history of transient ischemic attack (TIA), and cerebral infarction without residual deficits; Z79.01 Long term (current) use of anticoagulants; Z88.8 Allergy status to other drugs, medicaments and biological substances; Z88.5 Allergy status to narcotic agent; Z91.030 Bee allergy status; Z91.038 Other insect allergy status; Z79.82 Long term (current) use of aspirin; Z79.4 Long term (current) use of insulin; Z79.899 Other long term (current) drug therapy; Z87.891 Personal history of nicotine dependence; X58.XXXA Exposure to other specified factors, initial encounter
CPT/HCPCS: 80053; 85025; 99283

== ENCOUNTER 2022-12-02 07:32 | Day surgery (SDC) | payer MEDICARE ==
[2022-12-02] VITALS (7 sets, daily range): BP systolic 145–161; BP diastolic 62–129
[~2022-12-02] VITALS: Ht 165.1 cm; Wt 100.0 kg
--- NOTE | 2022-12-02 11:52 | NUR ---
[facility] TO CALL [facility] TO SET UP FOR NEXT DIALYSIS TIME. GONSALO WITH [facility] NOTIFIED. PT PERMA CATHETER IN PLACE AND READY FOR USE. NO BLEEDING NOTED. VSS. YMLES. PT AWAITING HER RIDE HOME.
--- NOTE | 2022-12-02 12:08 | NUR ---
PT EATING LUNCH, TOLERATING WELL. VSS. NADN. PT SITE REMAINS CLEAR. NO BLEEDING NOTED. PT RIDE TO ARRIVE AT 12:30
--- NOTE | 2022-12-02 12:30 | NUR ---
PT VERBALIZES UNDERSTANDING WRITTEN AND VERBAL INSTRUCTIONS. PT IV DC'D. CATH IN PLACE. NO BLEEDING NOTED. VSS. PT DENIES NEEDS. PERMA CATHETER REMAINS CLEAR. NO BLEEDING NOTED. PT DRESSES SELF. PT DC TO HOME VIA MEDICAL TRANSPORT BY .
== END 2022-12-02 13:49 | disposition home or self-care (01) ==
LOC: MHTC 07:32
DX: I12.0 Hypertensive chronic kidney disease with stage 5 chronic kidney disease or end stage renal disease (principal); N18.6 End stage renal disease; Z86.73 Personal history of transient ischemic attack (TIA), and cerebral infarction without residual deficits; E11.22 Type 2 diabetes mellitus with diabetic chronic kidney disease; E78.5 Hyperlipidemia, unspecified; Z88.5 Allergy status to narcotic agent; Z88.8 Allergy status to other drugs, medicaments and biological substances
CPT/HCPCS: 36558; 76937; 77001; 99152; 99153; C1750; C1769; C1894; J1644; J2250; J3010; J7030; J7040

== ENCOUNTER → 2022-12-23 | Outpatient (CLI) | payer MEDICARE, OTHER | END | disposition home or self-care (01) | LOC: LAB 14:55 → LAB SHORT 14:55 | DX: R39.89 Other symptoms and signs involving the genitourinary system (principal) | CPT/HCPCS: 87086 ==

== ENCOUNTER 2023-01-08 06:06 | Day surgery (SDC) | payer MEDICARE, OTHER ==
[~2023-01-08] VITALS: Ht 165.1 cm; Wt 100.0 kg
[~2023-01-08 06:06] MED LIST changes: +BISA10S PR; +EPIPEN0.3 MG/0.3 IM; +Voltaren100 GM
[2023-01-08 06:49] VITALS: BP 171/79
--- NOTE | 2023-01-08 09:46 | NUR ---
PT BACK TO RECOVERY FROM LAB. PT RESTING WITH EYES CLOSED. APPEARS TO BE SLEEPING. PT EASILY AROUSABLE. REPEAT V/S.
--- NOTE | 2023-01-08 10:07 | NUR ---
GROIN AND RADIAL SITE SOFT AND NON-TENDER PER PT. NO BLEEDING NOTED. PT EATING BREAKFAST.
--- NOTE | 2023-01-08 10:38 | NUR ---
RADIAL AND GROIN SITE SOFT AND NON-TENDER PER PT. NO BLEEDING NOTED. 2 CC REMOVED FROM TR BAND. PT FINISHED EATING BREAKFAST. PT GIVEN CRANBERRY JUICE PER REQUEST.
--- NOTE | 2023-01-08 12:10 | NUR ---
PT GIVEN DC INSTRUCTIONS AND VERBALIZED UNDERSTANDING. IV OUT. PT CHANGED. GROIN AND RADIAL SITE SOFT AND NON-TENDER. NO BLEEDING NOTED. PT TAKEN TO [facility] WHERE [facility] WAS WAITING TO TAKE PT HOME.
== END 2023-01-08 11:58 | disposition home or self-care (01) ==
LOC: MHTC 06:06
DX: I25.10 Atherosclerotic heart disease of native coronary artery without angina pectoris (principal); E66.3 Overweight; E11.22 Type 2 diabetes mellitus with diabetic chronic kidney disease; I12.0 Hypertensive chronic kidney disease with stage 5 chronic kidney disease or end stage renal disease; N18.6 End stage renal disease; Z99.2 Dependence on renal dialysis; Z88.5 Allergy status to narcotic agent; Z86.73 Personal history of transient ischemic attack (TIA), and cerebral infarction without residual deficits
CPT/HCPCS: 76937; 93454; 99152; 99153; A9270; C1769; C1887; C1894; J1644; J2250; J3010; J7030; J7050; Q9967

== ENCOUNTER 2023-03-19 08:53 | Day surgery (SDC) | payer MEDICARE, OTHER ==
[~2023-03-19] VITALS: Ht 165.1 cm; Wt 103.0 kg
[2023-03-19] VITALS (13 sets, daily range): BP systolic 117–183; BP diastolic 62–146
[2023-03-19] MEDS ORDERED: ONDA4 PO (09:31)
--- NOTE | 2023-03-19 12:15 | NUR ---
PT RETURNED TO RECOVERY ROOM POST PROCEDURE. PT DROWSY, BUT EASILY ROUSABLE, ANSWERING QUESTIONS APPROPRIATELY; DENIES PAIN POST PROCEDURE. MONITOR SR 60'S, B/P 158/72, SPO2 91% RA, AFEBRILE. L AC FISTULA CREATION SITE NO SWELLING/HEMATOMA, TEGADERM DRSG INTACT. L NECK NERVE BLOCK SITE NO SWELLING/HEMATOMA, CLOTH DOT DRSG INTACT. PT REPORTS L ARM REMAINS NUMB, UNABLE TO MOVE AT THIS POINT.
--- NOTE | 2023-03-19 12:20 | NUR ---
PT HR DECREASED TO 30'S, ASYMPTOMATIC; APPEARS TO BE 2ND DEGREE TYPE II BLOCK. PT'S SPO2 DROPPING TO 86%, PLACED ON 2L NC, SPO2 93%.
--- NOTE | 2023-03-19 12:55 | NUR ---
DR WALKER NOTIFIED OF SCAR EPISODE AND REVIEWED STRIP, REQUESTED CARDIOLOGY EVAL PT PRIOR TO DISCHARGE.
--- NOTE | 2023-03-19 13:05 | NUR ---
DR CHACKO REVIEWED SCAR STRIP AND REQUESTED PT HAVE 3 DAY ZIO MONITOR AND DECREASE COREG TO DAILY.
--- NOTE | 2023-03-19 13:58 | NUR ---
PT SITTING UP EATING LUNCH. SITE SOFT AND NON-TENDER. NO BLEEDING NOTED.
--- NOTE | 2023-03-19 14:34 | NUR ---
PT SITES SOFT AND NON-TENDER PER PT. NO BLEEDING NOTED. PT TAKEN TO RESTROOM VIA WC. PT CHANGED INTO CLOTHES. IV OUT. SLING APPLIED. PT GIVEN DC INSTRUCTIONS AND VERBALIZED UNDERSTANDING. PT INSTRUCTED ON ZIO MONITOR. VOICEMAIL LEFT WITH DUGLAS DE OLIVEIRA TO CALL THE PT TO SCHEDULE FOLLOW-UP ULTRASOUND. PT CALLED FOR [facility] IN [facility] AFTER DECLINING WE CALL FOR RIDE.
== END 2023-03-19 15:28 | disposition home or self-care (01) ==
LOC: MHTC 08:53
DX: Z49.01 Encounter for fitting and adjustment of extracorporeal dialysis catheter (principal); I12.0 Hypertensive chronic kidney disease with stage 5 chronic kidney disease or end stage renal disease; E11.22 Type 2 diabetes mellitus with diabetic chronic kidney disease; N18.6 End stage renal disease; E78.5 Hyperlipidemia, unspecified; E66.9 Obesity, unspecified; Z88.5 Allergy status to narcotic agent; Z88.8 Allergy status to other drugs, medicaments and biological substances; Z79.01 Long term (current) use of anticoagulants; Z79.4 Long term (current) use of insulin; Z79.899 Other long term (current) drug therapy
CPT/HCPCS: 36836; 64415; 76937; 93242; 99152; 99153; C1725; C1769; C1889; C1894; J1644; J2250; J3010; J7040

== ENCOUNTER 2023-06-23 13:55 | Emergency (ER) | payer MEDICARE, OTHER ==
[~2023-06-23] VITALS: Ht 165.1 cm; Wt 108.9 kg
[~2023-06-23 13:55] MED LIST changes: +ONDA4 PO
[2023-06-23] MEDS ORDERED: Ondansetron HCl 2 MG / ML 2ML Vial IV PRN (14:15)
[2023-06-23 14:23] LABS: BASOPHILS ABSOLUTE AUTO 0.08 K/mm3 (0.00-0.23); BASOPHILS PERCENT AUTO 1 % (0-2); EOSINOPHILS ABSOLUTE AUTO 0.08 K/mm3 (0.00-0.68); EOSINOPHILS PERCENT AUTO 1 % (0-6); Hematocrit 30.4 % (33.0-51.0); Hemoglobin 10.5 g/dL (11.5-16.0); IMMATURE GRAN PERCENT AUTO 1 % (0-1); LYMPHOCYTES PERCENT AUTO 12 % (21-46); MONOCYTES ABSOLUTE AUTO 0.89 K/mm3 (0.16-1.47); MONOCYTES PERCENT AUTO 6 % (4-13); Mean Corpuscular HGB 30.1 pg (26.0-34.0); Mean Corpuscular HGB Conc 34.5 g/dL (31.5-36.5); Mean Corpuscular Volume 87 fL (80-100); Mean Platelet Volume 10.2 fL (9.1-12.4); NEUTROPHILS ABSOLUTE AUTO 11.96 K/mm3 (1.96-9.15); NEUTROPHILS PERCENT AUTO 81 % (41-73); Platelet Count 320 K/mm3 (150-400); RDW Coefficient Variation 13.1 % (11.7-14.2); RDW Standard Deviation 41.1 fL (35.1-46.3); Red Blood Cell Count 3.49 M/mm3 (3.80-5.20); White Blood Cell Count 14.81 K/mm3 (4.00-11.30)
[2023-06-23 15:04] LABS: Base Excess Venous 6.9 mmol/L; Bicarbonate Venous 30.7 mmol/L (24.0-30.0); pH Blood Venous 7.56 (7.34-7.37)
[2023-06-23 15:05] LABS: Influenza A, PCR NEGATIVE (NEGATIVE); Influenza B, PCR NEGATIVE (NEGATIVE); Resp Syncytial Virus, PCR NEGATIVE (NEGATIVE); SARS-Cov-2 (COVID-19) PCR, MMC NEGATIVE (NEGATIVE)
[2023-06-23 15:09] LABS: Albumin, Blood 3.1 g/dL (3.4-5.0); Albumin/Globulin Ratio 0.7 (0.8-1.8); Bilirubin, Total 0.5 mg/dL (0.1-1.0); Bun/Creatinine Ratio 6.5 (12.0-20.0); Calcium, Blood 9.1 mg/dL (8.5-10.1); Creatinine, Blood 6.9 mg/dL (0.40-1.00); Globulin, Blood 4.3 g/dL (2.2-4.0); Potassium, Blood 3.4 mmol/L (3.5-5.5); Total Protein, Blood 7.4 g/dL (6.4-8.2)
[2023-06-23] MEDS ORDERED: LORazepam 2 MG/ML 1ML Injection IV ONE (15:10)
[2023-06-23] MEDS ORDERED: ONDA4 PO (16:53)
[2023-06-23 18:10] VITALS: BP 135/87
== END 2023-06-23 18:10 | disposition home or self-care (01) ==
LOC: ER 13:55
PROVIDERS: Emergency Medicine
DX: R11.10 Vomiting, unspecified (principal); R42 Dizziness and giddiness; I12.0 Hypertensive chronic kidney disease with stage 5 chronic kidney disease or end stage renal disease; N18.6 End stage renal disease; E11.22 Type 2 diabetes mellitus with diabetic chronic kidney disease; G40.909 Epilepsy, unspecified, not intractable, without status epilepticus; K21.9 Gastro-esophageal reflux disease without esophagitis; I25.10 Atherosclerotic heart disease of native coronary artery without angina pectoris; I25.2 Old myocardial infarction; Z99.2 Dependence on renal dialysis; Z88.5 Allergy status to narcotic agent; Z91.030 Bee allergy status; Z79.899 Other long term (current) drug therapy; Z79.01 Long term (current) use of anticoagulants; Z79.4 Long term (current) use of insulin
CPT/HCPCS: 0241U; 70450; 71045; 80053; 82803; 83690; 83880; 84484; 85025; 93005; 93010; 96374; 96375; 99285-25; J2060; J2405

== ENCOUNTER 2023-06-27 18:39 | Emergency (ER) | payer MEDICARE, OTHER ==
[~2023-06-27] VITALS: Ht 165.1 cm; Wt 108.9 kg
[2023-06-27 19:28] LABS: BASOPHILS ABSOLUTE AUTO 0.06 K/mm3 (0.00-0.23); BASOPHILS PERCENT AUTO 0 % (0-2); EOSINOPHILS ABSOLUTE AUTO 0.09 K/mm3 (0.00-0.68); EOSINOPHILS PERCENT AUTO 1 % (0-6); Hematocrit 31.7 % (33.0-51.0); Hemoglobin 10.5 g/dL (11.5-16.0); IMMATURE GRAN ABSOLUTE AUTO 0.12 K/mm3 (0.00-0.10); IMMATURE GRAN PERCENT AUTO 1 % (0-1); LYMPHOCYTES ABSOLUTE AUTO 3.02 K/mm3 (0.84-5.20); LYMPHOCYTES PERCENT AUTO 22 % (21-46); MONOCYTES ABSOLUTE AUTO 1.17 K/mm3 (0.16-1.47); MONOCYTES PERCENT AUTO 9 % (4-13); Mean Corpuscular HGB 29.8 pg (26.0-34.0); Mean Corpuscular HGB Conc 33.1 g/dL (31.5-36.5); Mean Corpuscular Volume 90 fL (80-100); Mean Platelet Volume 10.5 fL (9.1-12.4); NEUTROPHILS ABSOLUTE AUTO 9.19 K/mm3 (1.96-9.15); NEUTROPHILS PERCENT AUTO 67 % (41-73); Platelet Count 273 K/mm3 (150-400); RDW Standard Deviation 42.9 fL (35.1-46.3); Red Blood Cell Count 3.52 M/mm3 (3.80-5.20); White Blood Cell Count 13.65 K/mm3 (4.00-11.30)
[2023-06-27 19:36] LABS: Albumin, Blood 3.3 g/dL (3.4-5.0); Albumin/Globulin Ratio 0.8 (0.8-1.8); Bilirubin, Total 0.5 mg/dL (0.1-1.0); Bun/Creatinine Ratio 5.6 (12.0-20.0); Calcium, Blood 9.4 mg/dL (8.5-10.1); Creatinine, Blood 5.16 mg/dL (0.40-1.00); Globulin, Blood 4.2 g/dL (2.2-4.0); Potassium, Blood 3.4 mmol/L (3.5-5.5); Total Protein, Blood 7.5 g/dL (6.4-8.2)
[2023-06-27 21:58] LABS: Source, Urine Clean Catch
[2023-06-27 22:44] LABS: Bilirubin, Urine Neg (Neg); Blood, Urine 2+ (Neg); Glucose Qualitative, Urine 1+ (Neg); Ketones, Urine Neg (Neg); Leukocyte Esterase, Urine 3+ (Neg); Nitrite, Urine Neg (Neg); Protein, Urine 4+ (Neg); Urobilinogen, Urine NORM (Normal)
[2023-06-27 23:07] LABS: Appearance, Urine Hazy (Clear); Color, Urine Yellow (P-Yellow)
[2023-06-27 23:09] LABS: Bacteria Many /hpf; Squamous Epithelial Cells Few /hpf (Few); White Blood Cells, Urine 50-100 /hpf (0-5)
[2023-06-27] MEDS ORDERED: CEPH500 PO (23:35)
[2023-06-28 00:45] VITALS: BP 146/64
== END 2023-06-28 01:20 | disposition home or self-care (01) ==
LOC: ER 18:39
PROVIDERS: Emergency Medicine; Family Medicine
DX: N30.01 Acute cystitis with hematuria (principal); I12.0 Hypertensive chronic kidney disease with stage 5 chronic kidney disease or end stage renal disease; E11.22 Type 2 diabetes mellitus with diabetic chronic kidney disease; N18.6 End stage renal disease; F41.9 Anxiety disorder, unspecified; G89.29 Other chronic pain; G40.909 Epilepsy, unspecified, not intractable, without status epilepticus; F03.90 Unspecified dementia, unspecified severity, without behavioral disturbance, psychotic disturbance, mood disturbance, and anxiety; I25.2 Old myocardial infarction; Z99.2 Dependence on renal dialysis; Z87.891 Personal history of nicotine dependence; Z79.4 Long term (current) use of insulin; Z79.899 Other long term (current) drug therapy; Z79.02 Long term (current) use of antithrombotics/antiplatelets; Z79.01 Long term (current) use of anticoagulants; Z91.030 Bee allergy status; Z91.038 Other insect allergy status; Z88.5 Allergy status to narcotic agent; Z88.8 Allergy status to other drugs, medicaments and biological substances
CPT/HCPCS: 80053; 81001; 85025; 87077; 87086; 87186; 99283; P9612

== ENCOUNTER 2023-07-09 11:35 | Emergency (ER) | payer MEDICARE, OTHER ==
[~2023-07-09] VITALS: Ht 165.1 cm; Wt 95.2 kg
[~2023-07-09 11:35] MED LIST changes: +CEPH500 PO
[2023-07-09 13:01] LABS: BASOPHILS ABSOLUTE AUTO 0.08 K/mm3 (0.00-0.23); BASOPHILS PERCENT AUTO 1 % (0-2); EOSINOPHILS ABSOLUTE AUTO 0.08 K/mm3 (0.00-0.68); EOSINOPHILS PERCENT AUTO 1 % (0-6); Hemoglobin 10.6 g/dL (11.5-16.0); IMMATURE GRAN ABSOLUTE AUTO 0.08 K/mm3 (0.00-0.10); IMMATURE GRAN PERCENT AUTO 1 % (0-1); LYMPHOCYTES ABSOLUTE AUTO 2.13 K/mm3 (0.84-5.20); LYMPHOCYTES PERCENT AUTO 18 % (21-46); MONOCYTES ABSOLUTE AUTO 0.52 K/mm3 (0.16-1.47); MONOCYTES PERCENT AUTO 4 % (4-13); Mean Corpuscular HGB 29.1 pg (26.0-34.0); Mean Corpuscular HGB Conc 33.1 g/dL (31.5-36.5); Mean Corpuscular Volume 88 fL (80-100); Mean Platelet Volume 9.8 fL (9.1-12.4); NEUTROPHILS ABSOLUTE AUTO 9.07 K/mm3 (1.96-9.15); NEUTROPHILS PERCENT AUTO 76 % (41-73); Platelet Count 381 K/mm3 (150-400); RDW Coefficient Variation 12.7 % (11.7-14.2); RDW Standard Deviation 40.9 fL (35.1-46.3); Red Blood Cell Count 3.64 M/mm3 (3.80-5.20); White Blood Cell Count 11.96 K/mm3 (4.00-11.30)
[2023-07-09] MEDS ORDERED: Diazepam 5 MG / ML 2ML SYR IV ONE (13:10)
[2023-07-09] MEDS ORDERED: Ondansetron HCl 2 MG / ML 2ML Vial IV ONE (13:15)
[2023-07-09 13:29] LABS: Magnesium, Blood 2.8 mg/dL (1.6-2.4)
[2023-07-09 13:31] VITALS: BP 130/59
[2023-07-09 13:49] LABS: Albumin, Blood 3.9 g/dL (3.4-5.0); Albumin/Globulin Ratio 0.9 (0.8-1.8); Bilirubin, Total 0.4 mg/dL (0.1-1.0); Bun/Creatinine Ratio 5.7 (12.0-20.0); Calcium, Blood 9.5 mg/dL (8.5-10.1); Creatinine, Blood 9.97 mg/dL (0.40-1.00); Globulin, Blood 4.5 g/dL (2.2-4.0); Phosphorus, Blood 4.6 mg/dL (2.5-4.9); Potassium, Blood 3.4 mmol/L (3.5-5.5); Total Protein, Blood 8.4 g/dL (6.4-8.2)
[2023-07-09] MEDS ORDERED: ONDA4ODT MM (14:44)
[2023-07-09] MEDS ORDERED: Valium5 MG PO (14:44)
== END 2023-07-09 14:30 | disposition home or self-care (01) ==
LOC: ER 11:35
PROVIDERS: Physician Assistant
DX: H81.09 Meniere's disease, unspecified ear (principal); Z91.030 Bee allergy status; Z88.5 Allergy status to narcotic agent; Z88.8 Allergy status to other drugs, medicaments and biological substances; Z79.899 Other long term (current) drug therapy; Z79.4 Long term (current) use of insulin; E11.22 Type 2 diabetes mellitus with diabetic chronic kidney disease; G43.909 Migraine, unspecified, not intractable, without status migrainosus; I12.0 Hypertensive chronic kidney disease with stage 5 chronic kidney disease or end stage renal disease; K21.9 Gastro-esophageal reflux disease without esophagitis; N18.6 End stage renal disease; I25.10 Atherosclerotic heart disease of native coronary artery without angina pectoris; I25.2 Old myocardial infarction; F17.200 Nicotine dependence, unspecified, uncomplicated
CPT/HCPCS: 80053; 83735; 84100; 85025; 93005; 93010; 96374; 96375; 99284-25; J2405; J3360

== ENCOUNTER 2023-07-16 06:48 | Day surgery (SDC) | payer MEDICARE, OTHER ==
[~2023-07-16] VITALS: Ht 165.1 cm; Wt 105.0 kg
[2023-07-16] VITALS (8 sets, daily range): BP systolic 127–164; BP diastolic 47–63
[~2023-07-16 06:48] MED LIST changes: +Valium5 MG PO
[2023-07-16] MEDS ORDERED: Heparin Sodium 1000 Units/ML 10ML MDV ONE (07:01)
[2023-07-16] MEDS ORDERED: Nitroglycerin 2 MG/20 ML BTL ONE (07:01)
[2023-07-16] MEDS ORDERED: Verapamil HCL 2.5 MG/ML 2ML Injection ONE (07:01)
[2023-07-16] MEDS ORDERED: NS 1,000 ML IV ONE ×2 (07:01→08:33)
[2023-07-16] MEDS ORDERED: OZEMPIC1 MG/0.72 SQ (07:33)
[2023-07-16] MEDS ORDERED: ACET325 PO (07:35)
[2023-07-16] MEDS ORDERED: DULCOLAX400 MG/51 PO (07:37)
[2023-07-16] MEDS ORDERED: POLYOX WSR-3011 GM MC (07:39)
[2023-07-16] MEDS ORDERED: Midazolam HCl 1MG / ML 2ML Vial ONE ×2 (08:33→09:08)
[2023-07-16] MEDS ORDERED: FentaNYL Citrate 50 MCG/ML 2 ML Injection ONE ×2 (08:33→09:08)
[2023-07-16] MEDS ORDERED: Ondansetron HCl 2 MG / ML 2ML Vial ONE (09:54)
--- NOTE | 2023-07-16 10:12 | NUR ---
PT ARRIVES BACK FROM LAB. PT ALERT AND ORIENTED, VSS UPON ARRIVAL TO RECOVERY ROOM. TR BAND IN PLACE TO LEFT RADIAL WITH 12CC OF AIR, SITE WNL, NO OOZING NO HEMATOMA, DRESSING TO LEFT UPPER ARM WITH SUTURES, STERI STRIPS AND BANDAGE IN PLACE, NO OOZING AT THIS TIME. PER ORDER PT TO HAVE ZIO PATCH PRIOR TO DEPARTURE. FRONT OFFICE STAFF AWARE.
--- NOTE | 2023-07-16 10:23 | NUR ---
PT ASSISTED WITH BREAKFAST TRAY AT THIS TIME. SITTING UP IN BED EATING.
--- NOTE | 2023-07-16 11:18 | NUR ---
INITIAL 2 CC OF AIR REMOVED FROM R RADIAL TR BAND. SITE C/D/I SOFT/NONTENDER, NO EVIDENCE OF HEMATOMA. VSS ON RA. PATIENT TOLERATING PO INTAKE WELL. PATIENT DENYING ANY PAIN
--- NOTE | 2023-07-16 12:00 | NUR ---
ALL AIR REMOVED FROM R RADIAL TR BAND. SITE C/D/I SOFT/NONTENDER, NO EVIDENCE OF BLEEDING
[2023-07-16] MEDS ORDERED: Ondansetron 4 MG SoluTab SL ONE (12:15)
--- NOTE | 2023-07-16 12:26 | NUR ---
PATIENT VOMITING. VERBAL ORDER FOR PO ZOFRAN. PATIENT GIVEN PO ZOFRAN. PATIENT FOUND RELIEF.
--- NOTE | 2023-07-16 12:42 | NUR ---
PATIENT DISCHARGED BACK TO FACILITY AT THIS TIME VIA DIRECT TRANSPORT. ALL PATIENT BELONGINGS LEFT WITH PATIENT. DISCHARGE PAPERWORK REVIEWED WITH PATIENT. PIV REMOVED WITHOUT DIFFICULTY, CATHETER INTACT. CLOTH DOT APPLIED OVER R WRIST.
--- NOTE | 2023-07-16 12:52 | NUR ---
TELEPHONE REPORT GIVEN TO MONIQUE FROM TAMARA DON. RN UPDATED ON MEDS, APPOINTMENTS, AND AFTER CARE
== END 2023-07-16 12:30 | disposition home or self-care (01) ==
LOC: MHTC 06:48
PROC: 03723ZZ Dilation of Innominate Artery, Percutaneous Approach (ICD-10-PCS; principal; 2023-07-16)
DX: T82.590A Other mechanical complication of surgically created arteriovenous fistula, initial encounter (principal); I12.0 Hypertensive chronic kidney disease with stage 5 chronic kidney disease or end stage renal disease; E11.22 Type 2 diabetes mellitus with diabetic chronic kidney disease; N18.6 End stage renal disease; E78.5 Hyperlipidemia, unspecified; Z99.2 Dependence on renal dialysis; Z86.73 Personal history of transient ischemic attack (TIA), and cerebral infarction without residual deficits; Z91.030 Bee allergy status; Z88.5 Allergy status to narcotic agent; Z88.8 Allergy status to other drugs, medicaments and biological substances; Z79.899 Other long term (current) drug therapy; Z79.02 Long term (current) use of antithrombotics/antiplatelets; Z79.01 Long term (current) use of anticoagulants; Z79.4 Long term (current) use of insulin; Y84.1 Kidney dialysis as the cause of abnormal reaction of the patient, or of later complication, without mention of misadventure at the time of the procedure
CPT/HCPCS: 76937; 82947; 93246; 99152; 99153; A9270; C1725; C1769; C1887; C1894; J1644; J2250; J2405; J3010; J7030; Q9967

== ENCOUNTER → 2023-11-11 | Outpatient (CLI) | payer MEDICARE, OTHER ==
[~2023-11-11] MED LIST changes: +ACET325 PO; +DULCOLAX400 MG/51 PO; +OZEMPIC1 MG/0.72 SQ; +POLYOX WSR-3011 GM MC
[2023-11-11 11:30] LABS: Source, Urine Clean Catch
[2023-11-11 12:40] LABS: Appearance, Urine Turbid (Clear); Bilirubin, Urine Neg (Neg); Blood, Urine 3+ (Neg); Glucose Qualitative, Urine 2+ (Neg); Ketones, Urine 1+ (Neg); Leukocyte Esterase, Urine 3+ (Neg); Nitrite, Urine Neg (Neg); Protein, Urine 3+ (Neg); Specific Gravity, Urine 1.015 (1.003-1.022); Urobilinogen, Urine NORM (Normal)
[2023-11-11 13:46] LABS: Color, Urine Pale Yellow (P-Yellow)
[2023-11-11 13:48] LABS: Bacteria Many /hpf; Squamous Epithelial Cells Rare /hpf (Few); White Blood Cells, Urine TNTC /hpf (0-5)
== END | disposition home or self-care (01) ==
LOC: LAB 04:00 → LAB SHORT 04:00 → LAB 11:29
PROVIDERS: Family Medicine
DX: R30.0 Dysuria (principal)
CPT/HCPCS: 81001; 87077; 87086; 87186

== ENCOUNTER → 2023-11-30 | Outpatient (CLI) | payer MEDICARE, OTHER ==
[2023-11-30 13:10] LABS: Source, Urine Clean Catch
[2023-11-30 18:05] LABS: Appearance, Urine Hazy (Clear); Bilirubin, Urine Neg (Neg); Blood, Urine 1+ (Neg); Glucose Qualitative, Urine 3+ (Neg); Ketones, Urine Neg (Neg); Leukocyte Esterase, Urine 1+ (Neg); Nitrite, Urine Neg (Neg); Protein, Urine 3+ (Neg); Urobilinogen, Urine NORM (Normal)
[2023-11-30 18:19] LABS: Color, Urine Pale Yellow (P-Yellow)
[2023-11-30 18:20] LABS: Bacteria Few /hpf; Squamous Epithelial Cells Few /hpf (Few)
== END ==
LOC: LAB 04:00 → LAB SHORT 04:00
PROVIDERS: Family Medicine
DX: R30.0 Dysuria (principal)
CPT/HCPCS: 81001; 87086

== ENCOUNTER 2024-02-25 06:47 | Day surgery (SDC) | payer MEDICARE, OTHER ==
[2024-02-25] VITALS (9 sets, daily range): BP systolic 98–127; BP diastolic 57–73
[~2024-02-25] VITALS: Ht 165.1 cm; Wt 108.9 kg
[~2024-02-25 06:47] MED LIST changes: +ALEVE ARTHRITI100 GM TOP; +CIPR250 PO; +DULCOLAX400 MG/5 M PO; +LOPE2C PO; +MECL12.5 PO; +MEGESTROL400 MG/11 PO; +MIDO5 PO; +MIRALAX11910 PO; +OZEMPIC1 MG/0.72 SC; -POLYOX WSR-3011 GM MC; +Voltaren100 GM TOP
[2024-02-25] MEDS ORDERED: Heparin Sodium 1000 Units/ML 10ML MDV ONE ×2 (07:00→08:28)
[2024-02-25] MEDS ORDERED: NS 1,000 ML IV ONE ×2 (07:00→08:23)
[2024-02-25] MEDS ORDERED: Nitroglycerin 2 MG/20 ML BTL ONE (07:13)
[2024-02-25] MEDS ORDERED: Verapamil HCL 2.5 MG/ML 2ML Injection ONE (07:13)
[2024-02-25] MEDS ORDERED: Midazolam HCl 1MG / ML 2ML Vial ONE ×2 (08:22→08:56)
[2024-02-25] MEDS ORDERED: FentaNYL Citrate 50 MCG/ML 2 ML Injection ONE ×2 (08:22→08:56)
[2024-02-25 08:39] LABS: Hemoglobin 9.8 g/dL (11.5-16.0); Mean Corpuscular HGB 30.7 pg (26.0-34.0); Mean Corpuscular HGB Conc 32.7 g/dL (31.5-36.5); Mean Corpuscular Volume 94 fL (80-100); Mean Platelet Volume 10.2 fL (9.1-12.4); Platelet Count 316 K/mm3 (150-400); RDW Coefficient Variation 14.4 % (11.7-14.2); RDW Standard Deviation 49.8 fL (35.1-46.3); Red Blood Cell Count 3.19 M/mm3 (3.80-5.20); White Blood Cell Count 15.64 K/mm3 (4.00-11.30)
[2024-02-25 09:43] LABS: Calcium, Blood 9.6 mg/dL (8.5-10.1); Potassium, Blood 4.4 mmol/L (3.5-5.5)
[2024-02-25 09:48] LABS: Bun/Creatinine Ratio 7.3 (12.0-20.0); Creatinine, Blood 8.09 mg/dL (0.40-1.00)
--- NOTE | 2024-02-25 10:05 | NUR ---
PATIENT ARRIVED BACK TO RECOVERY ROOM. HOB ELEVATED.L ARM WITH VENOUS ACCESS, SOME OOZING NOTED. VSS ON RA. PATIENT CONVERSING APPROPRIATELY
--- NOTE | 2024-02-25 10:45 | NUR ---
PATIENTS DAUGHTER UPDATED VIA TELEPHONE
--- NOTE | 2024-02-25 11:00 | NUR ---
INITIAL 3 CC OF AIR REMOVED FROM L TR BAND. SITE C/D/I SOFT/NONTENDER, NO EVIDENCE OF BLEEDING. L UPPER ARM SITE SOFT/NONTENDER, DRIED DRAINAGE NOTED. THRILL PRESENT. VSS ON RA. PATIENT TOLERATING PO INTAKE WELL
--- NOTE | 2024-02-25 11:08 | NUR ---
TAMARA DON UPDATED AND VERBAL INSTRUCTIONS GIVEN. ALL QUESTIONS WERE ANSWERED
--- NOTE | 2024-02-25 11:30 | NUR ---
ALL AIR REMOVED FROM RADIAL BAND. SITE C/D/I. L ARM WITH THRILL PRESENT. DRIED DRAINAGE NOTED. PATIENT TOELRATING PO INTAKE WELL. VSS ON RA
--- NOTE | 2024-02-25 12:00 | NUR ---
DISCAHRGE INSTRUCTIONS REVIEWED WITH PATIENT. ALL QUESTIONS WERE ANSWSERED. VSS ON RA
--- NOTE | 2024-02-25 12:30 | NUR ---
PATIENT DISCHARGED AT THIS TIME. PATIENT WHEELED TO ER ADMITTING DESK PER TAMARA DON FOR PUS DISCHARGE. VERBAL REPORT GIVEN TO FREIGHT BRAKEMAN VIA TELEPHONE. PIV LEFT IN PLACE. DISCHARGE INSTRUCTIONS AND PATIENT BELONGINGS LEFT WITH PATIENT.
== END 2024-02-25 12:30 | disposition home or self-care (01) ==
LOC: MHTC 06:47
PROVIDERS: Radiology Diagnostic Radiology
DX: T82.898A Other specified complication of vascular prosthetic devices, implants and grafts, initial encounter (principal); I12.0 Hypertensive chronic kidney disease with stage 5 chronic kidney disease or end stage renal disease; E11.22 Type 2 diabetes mellitus with diabetic chronic kidney disease; N18.6 End stage renal disease; E78.5 Hyperlipidemia, unspecified; Z88.5 Allergy status to narcotic agent; Z79.01 Long term (current) use of anticoagulants; Z79.4 Long term (current) use of insulin; Z79.899 Other long term (current) drug therapy
CPT/HCPCS: 36907; 37607; 76937; 80048; 85027; 99152; 99153; C1725; C1769; C1887; C1894; J1644; J2250; J3010; J7030; Q9967

== ENCOUNTER 2024-02-25 12:30 | Emergency (ER) | payer MEDICARE, OTHER ==
[~2024-02-25] VITALS: Ht 162.6 cm; Wt 113.4 kg
[2024-02-25 12:37] VITALS: BP 109/52
== END 2024-02-25 14:15 | disposition left against medical advice (07) ==
LOC: ER 12:30
DX: N39.0 Urinary tract infection, site not specified (principal); Z53.29 Procedure and treatment not carried out because of patient's decision for other reasons
CPT/HCPCS: 99281

== ENCOUNTER 2024-03-10 12:11 | Observation (INO) | payer MEDICARE, OTHER ==
[~2024-03-10] VITALS: Ht 165.1 cm; Wt 108.9 kg
[2024-03-10 13:27] LABS: BASOPHILS PERCENT AUTO 1 % (0-2); EOSINOPHILS PERCENT AUTO 2 % (0-6); Hematocrit 27.6 % (33.0-51.0); Hemoglobin 8.9 g/dL (11.5-16.0); IMMATURE GRAN ABSOLUTE AUTO 0.12 K/mm3 (0.00-0.10); IMMATURE GRAN PERCENT AUTO 1 % (0-1); LYMPHOCYTES PERCENT AUTO 29 % (21-46); MONOCYTES ABSOLUTE AUTO 0.85 K/mm3 (0.16-1.47); MONOCYTES PERCENT AUTO 8 % (4-13); Mean Corpuscular HGB 30.8 pg (26.0-34.0); Mean Corpuscular HGB Conc 32.2 g/dL (31.5-36.5); Mean Corpuscular Volume 96 fL (80-100); Mean Platelet Volume 9.7 fL (9.1-12.4); NEUTROPHILS ABSOLUTE AUTO 6.48 K/mm3 (1.96-9.15); NEUTROPHILS PERCENT AUTO 59 % (41-73); Platelet Count 361 K/mm3 (150-400); RDW Coefficient Variation 13.9 % (11.7-14.2); RDW Standard Deviation 48.2 fL (35.1-46.3); Red Blood Cell Count 2.89 M/mm3 (3.80-5.20); White Blood Cell Count 10.95 K/mm3 (4.00-11.30)
[2024-03-10 13:37] LABS: International Normalized Ratio 1.07; Prothrombin Time Results 11.4 Sec (9.7-11.5)
[2024-03-10 14:18] LABS: Albumin, Blood 3.1 g/dL (3.4-5.0); Albumin/Globulin Ratio 0.7 (0.8-1.8); Bilirubin, Total 0.4 mg/dL (0.1-1.0); Bun/Creatinine Ratio 8.5 (12.0-20.0); Calcium, Blood 9.7 mg/dL (8.5-10.1); Globulin, Blood 4.2 g/dL (2.2-4.0); Phosphorus, Blood 4.2 mg/dL (2.5-4.9); Total Protein, Blood 7.3 g/dL (6.4-8.2)
[2024-03-10] MEDS ORDERED: Magnesium Hydroxide Conc 10 ML UDC PO PRN (14:30)
[2024-03-10] MEDS ORDERED: Sodium Zirconium Cyclosilicate 10 GM Packet PO SCH ×2 (14:30→21:00)
[2024-03-10] MEDS ORDERED: Ondansetron 4 MG SoluTab MM PRN (14:30)
[2024-03-10] MEDS ORDERED: Acetaminophen 325 MG TABLET PO PRN (14:35)
[2024-03-10] MEDS ORDERED: FLU VACC TS2024-25(6MOS UP)/PF 45 MCG/0.5 ML SYRINGE IM SCH (14:35)
[2024-03-10] MEDS ORDERED: Albuterol HFA200 ACT/6.7 GM INH INH PRN (14:55)
[2024-03-10] MEDS ORDERED: DIAZ5 PO (16:46)
[2024-03-10 17:00] VITALS: BP 165/53
[2024-03-10] MEDS ORDERED: Carvedilol 3.125 MG Tab PO SCH (17:00)
[2024-03-10] MEDS ORDERED: Heparin Sodium 1000 Units/ML 10ML MDV ONE (17:18)
[2024-03-10] MEDS ORDERED: NS 250 ML IV ONE (17:18)
[2024-03-10] MEDS ORDERED: Midazolam HCl 1MG / ML 2ML Vial ONE (17:20)
[2024-03-10] MEDS ORDERED: FentaNYL Citrate 50 MCG/ML 2 ML Injection ONE (17:20)
[2024-03-10] MEDS ORDERED: NS 1,000 ML IV ONE (17:20)
[2024-03-10] MEDS ORDERED: Heparin Sodium 10,000 Units/ML 1ML MDV ONE (17:49)
--- NOTE | 2024-03-10 18:00 | NUR ---
SHIFT SUMMARY PT A NEW ADMIT THIS EVENING, ORIENTED TO THE ROOM AND THE USE OF THE CALL LIGHT. NO COMPLAINTS AT ADMIT. PT NPO FOR A DIALYSIS CATHETER REPLACEMENT. SHE LEFT THE ROOM AT 1750 TO GO TO THE OR. USES WC AT BASELINE BUT CAN STAND-PIVOT INDEPENDENTLY TO THE WC. NO EVENTS PER TELE. PT REPOSITIONS SELF IN BED. ORIENTED TO HER OWN ABILITIES, CALLS AND MAKES HER NEEDS KNOWN. CALL LIGHT WITHIN REACH, BED LOCKED AND IN THE LOWEST POSITION. WILL REPORT TO ONCOMING NURSE.
[2024-03-10 19:04] VITALS: BP 139/72
[2024-03-10 20:35] VITALS: BP 131/94
[2024-03-10] MEDS ORDERED: Midodrine 5 MG Tab PO SCH (21:00)
[2024-03-10] MEDS ORDERED: Insulin Human Lispro 100 Units/ML 3ML Syringe SC SCH (21:00)
[2024-03-10] MEDS ORDERED: Atorvastatin 40 MG Tab PO SCH (21:00)
[2024-03-10] MEDS ORDERED: Insulin Glargine-Yfgn 100 Unit/mL 3 ML SYR SC SCH (21:00)
[2024-03-10 21:34] VITALS: BP 137/98
[2024-03-10] MEDS ORDERED: Darbepoetin Alfa In Albumn Sol 40 MCG/0.4 ML SC SCH (22:00)
[2024-03-10 23:05] VITALS: BP 127/61
[2024-03-11] VITALS (19 sets, daily range): BP systolic 74–150; BP diastolic 25–95
[2024-03-11 05:17] LABS: BASOPHILS ABSOLUTE AUTO 0.06 K/mm3 (0.00-0.23); BASOPHILS PERCENT AUTO 1 % (0-2); EOSINOPHILS ABSOLUTE AUTO 0.19 K/mm3 (0.00-0.68); EOSINOPHILS PERCENT AUTO 2 % (0-6); Hematocrit 25.9 % (33.0-51.0); Hemoglobin 8.3 g/dL (11.5-16.0); IMMATURE GRAN ABSOLUTE AUTO 0.12 K/mm3 (0.00-0.10); IMMATURE GRAN PERCENT AUTO 1 % (0-1); LYMPHOCYTES ABSOLUTE AUTO 3.16 K/mm3 (0.84-5.20); LYMPHOCYTES PERCENT AUTO 32 % (21-46); MONOCYTES ABSOLUTE AUTO 0.81 K/mm3 (0.16-1.47); MONOCYTES PERCENT AUTO 8 % (4-13); Mean Corpuscular HGB 30.5 pg (26.0-34.0); Mean Corpuscular Volume 95 fL (80-100); Mean Platelet Volume 9.5 fL (9.1-12.4); NEUTROPHILS ABSOLUTE AUTO 5.65 K/mm3 (1.96-9.15); NEUTROPHILS PERCENT AUTO 57 % (41-73); Platelet Count 371 K/mm3 (150-400); RDW Coefficient Variation 14.2 % (11.7-14.2); RDW Standard Deviation 48.7 fL (35.1-46.3); Red Blood Cell Count 2.72 M/mm3 (3.80-5.20); White Blood Cell Count 9.99 K/mm3 (4.00-11.30)
[2024-03-11 06:00] LABS: Magnesium, Blood 1.8 mg/dL (1.6-2.4)
[2024-03-11] MEDS ORDERED: Pantoprazole Sodium 40 MG Tab PO SCH (06:00)
--- NOTE | 2024-03-11 06:36 | NUR ---
Patient alert and oriented overnight, forgetful at times, compliant with care, resting comfortably on room air. New HD port site leaking/oozing blood for majority of night, dressings changed several times with pressure bandages, sand bag implementation. Patient tolerated well, VSS, site now clean, dry, no longer oozing at this time. Per Dr. Echols, patient to be dialyzed today.
[2024-03-11 06:46] LABS: Anion Gap 16 mmol/L (3-11); Blood Urea Nitrogen 91 mg/dL (8-24); Bun/Creatinine Ratio 8.7 (12.0-20.0); CO2, Blood 24 mmol/L (21-32); Calcium, Blood 9.4 mg/dL (8.5-10.1); Chloride, Blood 104 mmol/L (98-108); Glomerular Filtration Rate 4 (60-); Glucose, Blood 191 mg/dL (70-99); Phosphorus, Blood 4.6 mg/dL (2.5-4.9); Sodium, Blood 139 mmol/L (136-145)
[2024-03-11] MEDS ORDERED: Insulin Human Lispro 100 Units/ML 3ML Syringe SC SCH (07:30)
[2024-03-11] MEDS ORDERED: Anticoagulant Sod Citrate Soln 3 ML SYR INJ PRN (07:40)
[2024-03-11] MEDS ORDERED: Calcium Acetate 667 MG Gel Cap PO SCH ×2 (08:30→09:00)
[2024-03-11] MEDS ORDERED: Losartan Potassium 25 MG Tab PO SCH (09:00)
[2024-03-11] MEDS ORDERED: Multivitamins 1 Tab PO SCH (09:00)
[2024-03-11] MEDS ORDERED: Citalopram Hydrobromide 20 MG Tab PO SCH (09:00)
--- NOTE | 2024-03-11 17:36 | NUR ---
PT WENT FOR DIALYSIS THIS MORNING. TOLERATED WELL. DC ORDERS GIVEN. DC INSTRUCTIONS GIVEN. IV AND TELE DC'd. PT HELPED TO DRESS. [facility] CALLED AND GIVEN UPDATE AND PT AND DC INSTRUCTIONS. MEDICATIONS FAXED TO PHARMACY. ALL BELONGINGS SENT HOME WITH PT. [facility] TRANSPORTED PT WITH HER PERSONAL WHEELCHAIR BACK TO [facility].
== END 2024-03-11 16:09 | disposition home or self-care (01) ==
LOC: ER 12:11 → MEDS 12:12
PROVIDERS: Internal Medicine Nephrology; Student in an Organized Health Care Education/Training Program; ADMIT Internal Medicine
DX: T82.41XA Breakdown (mechanical) of vascular dialysis catheter, initial encounter (principal); E11.22 Type 2 diabetes mellitus with diabetic chronic kidney disease; I13.2 Hypertensive heart and chronic kidney disease with heart failure and with stage 5 chronic kidney disease, or end stage renal disease; I50.9 Heart failure, unspecified; N18.6 End stage renal disease; D64.9 Anemia, unspecified; N25.81 Secondary hyperparathyroidism of renal origin; I25.10 Atherosclerotic heart disease of native coronary artery without angina pectoris; G40.909 Epilepsy, unspecified, not intractable, without status epilepticus; Z79.4 Long term (current) use of insulin; Z79.899 Other long term (current) drug therapy; Z86.73 Personal history of transient ischemic attack (TIA), and cerebral infarction without residual deficits; Z88.5 Allergy status to narcotic agent; Z88.8 Allergy status to other drugs, medicaments and biological substances; Z91.030 Bee allergy status; Z95.0 Presence of cardiac pacemaker; Z99.2 Dependence on renal dialysis; Y84.8 Other medical procedures as the cause of abnormal reaction of the patient, or of later complication, without mention of misadventure at the time of the procedure
CPT/HCPCS: 36415; 36581; 37248; 75827; 77001; 80053; 80069; 82947; 83735; 84100; 85025; 85610; 85730; 93005; 93010; 94760; 99152; 99153; 99285-25; A9270; C1725; C1750; C1769; C1887; C1894; G0257; G0378; J0881; J1644; J1815; J2250; J3010; J7030; J7050; Q9967

== ENCOUNTER → 2024-06-01 | Outpatient (CLI) | payer MEDICARE, OTHER ==
[~2024-06-01] MED LIST changes: +DIAZ5 PO
[2024-06-01 07:49] LABS: Hematocrit 32.8 % (33.0-51.0); Hemoglobin 10.7 g/dL (11.5-16.0); Mean Corpuscular HGB Conc 32.6 g/dL (31.5-36.5); Mean Corpuscular Volume 92 fL (80-100); Mean Platelet Volume 10.1 fL (9.1-12.4); Platelet Count 287 K/mm3 (150-400); RDW Coefficient Variation 14.8 % (11.7-14.2); RDW Standard Deviation 49.4 fL (35.1-46.3); Red Blood Cell Count 3.57 M/mm3 (3.80-5.20); White Blood Cell Count 10.55 K/mm3 (4.00-11.30)
[2024-06-01 07:54] LABS: Percent Saturation 22.8 % (15.0-50.0)
[2024-06-01 08:20] LABS: BASOPHILS PERCENT MAN 0 % (0-2); EOSINOPHILS ABSOLUTE MAN 0.21 K/mm3 (0.00-0.68); EOSINOPHILS PERCENT MAN 2 % (0-6); LYMPHOCYTES ABSOLUTE MAN 1.58 K/mm3 (0.84-5.20); LYMPHOCYTES PERCENT MAN 15 % (21-46); MONOCYTES ABSOLUTE MAN 0.63 K/mm3 (0.16-1.47); MONOCYTES PERCENT MAN 6 % (4-13); NEUTROPHILS ABSOLUTE MAN 8.12 K/mm3 (1.96-9.15); SEG NEUTROPHILS PERCENT MAN 77 % (41-73); TOTAL CELLS COUNTED 100
== END ==
LOC: LAB 06:15 → LAB SHORT 06:15
PROVIDERS: Family Medicine
DX: D64.9 Anemia, unspecified (principal)
CPT/HCPCS: 82728; 83540; 83550; 85007; 85027

== ENCOUNTER 2024-08-14 15:39 | Emergency (ER) | payer MEDICARE, OTHER ==
[~2024-08-14] VITALS: Ht 165.1 cm; Wt 95.2 kg
[2024-08-14] MEDS ORDERED: Morphine Sulfate 4 MG/1 ML Injection IV ONE (16:15)
[2024-08-14 16:43] LABS: BASOPHILS ABSOLUTE AUTO 0.07 K/mm3 (0.00-0.23); BASOPHILS PERCENT AUTO 1 % (0-2); EOSINOPHILS ABSOLUTE AUTO 0.18 K/mm3 (0.00-0.68); EOSINOPHILS PERCENT AUTO 2 % (0-6); Hematocrit 34.2 % (33.0-51.0); Hemoglobin 10.9 g/dL (11.5-16.0); IMMATURE GRAN ABSOLUTE AUTO 0.14 K/mm3 (0.00-0.10); IMMATURE GRAN PERCENT AUTO 1 % (0-1); LYMPHOCYTES ABSOLUTE AUTO 2.15 K/mm3 (0.84-5.20); LYMPHOCYTES PERCENT AUTO 21 % (21-46); MONOCYTES ABSOLUTE AUTO 0.69 K/mm3 (0.16-1.47); MONOCYTES PERCENT AUTO 7 % (4-13); Mean Corpuscular HGB 29.9 pg (26.0-34.0); Mean Corpuscular HGB Conc 31.9 g/dL (31.5-36.5); Mean Corpuscular Volume 94 fL (80-100); Mean Platelet Volume 9.6 fL (9.1-12.4); NEUTROPHILS ABSOLUTE AUTO 6.92 K/mm3 (1.96-9.15); NEUTROPHILS PERCENT AUTO 68 % (41-73); Platelet Count 307 K/mm3 (150-400); RDW Coefficient Variation 15.8 % (11.7-14.2); RDW Standard Deviation 54.1 fL (35.1-46.3); Red Blood Cell Count 3.64 M/mm3 (3.80-5.20); White Blood Cell Count 10.15 K/mm3 (4.00-11.30)
[2024-08-14] MEDS ORDERED: RX Prepack 6 Tabs Oxycodone 5mg UD ONE (18:05)
[2024-08-14] MEDS ORDERED: Acetaminophen 325 MG TABLET PO ONE (18:05)
[2024-08-14 18:30] VITALS: BP 126/46
== END 2024-08-14 19:40 | disposition home or self-care (01) ==
LOC: ER 15:39
PROVIDERS: Student in an Organized Health Care Education/Training Program
DX: M54.6 Pain in thoracic spine (principal); E11.22 Type 2 diabetes mellitus with diabetic chronic kidney disease; I12.0 Hypertensive chronic kidney disease with stage 5 chronic kidney disease or end stage renal disease; N18.6 End stage renal disease; I25.10 Atherosclerotic heart disease of native coronary artery without angina pectoris; G40.909 Epilepsy, unspecified, not intractable, without status epilepticus; F17.210 Nicotine dependence, cigarettes, uncomplicated; Z99.2 Dependence on renal dialysis; Z86.73 Personal history of transient ischemic attack (TIA), and cerebral infarction without residual deficits; Z91.030 Bee allergy status; Z88.5 Allergy status to narcotic agent; Z88.8 Allergy status to other drugs, medicaments and biological substances; Z91.038 Other insect allergy status; Z79.01 Long term (current) use of anticoagulants; Z79.4 Long term (current) use of insulin; Z79.85 Long-term (current) use of injectable non-insulin antidiabetic drugs; Z79.899 Other long term (current) drug therapy; W05.0XXA Fall from non-moving wheelchair, initial encounter
CPT/HCPCS: 70450; 71250; 85025; 96374; 99284-25; A9270; J2270

== ENCOUNTER 2024-09-15 16:25 | Emergency (ER) | payer MEDICARE, OTHER ==
[~2024-09-15] VITALS: Ht 165.1 cm; Wt 95.2 kg
[~2024-09-15 16:25] MED LIST changes: +AMOCLA875 PO; +DOCU100 PO; +IMODIUM A-D2 M1 PO
[2024-09-15 17:15] VITALS: BP 119/77
== END 2024-09-15 20:47 | disposition left against medical advice (07) ==
LOC: ER 16:25
DX: Z53.21 Procedure and treatment not carried out due to patient leaving prior to being seen by health care provider (principal); K56.41 Fecal impaction
CPT/HCPCS: 74018

== ENCOUNTER → 2024-09-19 | Outpatient (CLI) | payer MEDICARE, OTHER ==
[2024-09-19 18:24] LABS: Hematocrit 30.7 % (33.0-51.0); Hemoglobin 10.1 g/dL (11.5-16.0); Mean Corpuscular HGB 30.4 pg (26.0-34.0); Mean Corpuscular HGB Conc 32.9 g/dL (31.5-36.5); Mean Corpuscular Volume 93 fL (80-100); Platelet Count 241 K/mm3 (150-400); RDW Coefficient Variation 15.7 % (11.7-14.2); RDW Standard Deviation 53.6 fL (35.1-46.3); Red Blood Cell Count 3.32 M/mm3 (3.80-5.20)
[2024-09-19 18:43] LABS: BASOPHILS PERCENT MAN 0 % (0-2); EOSINOPHILS PERCENT MAN 0 % (0-6); LYMPHOCYTES ABSOLUTE MAN 0.81 K/mm3 (0.84-5.20); LYMPHOCYTES PERCENT MAN 13 % (21-46); MONOCYTES ABSOLUTE MAN 0.69 K/mm3 (0.16-1.47); MONOCYTES PERCENT MAN 11 % (4-13); NEUTROPHILS ABSOLUTE MAN 4.78 K/mm3 (1.96-9.15); SEG NEUTROPHILS PERCENT MAN 76 % (41-73); TOTAL CELLS COUNTED 100
== END | disposition home or self-care (01) ==
LOC: LAB SHORT 18:15 → LAB 18:15
PROVIDERS: Family Medicine
DX: E11.22 Type 2 diabetes mellitus with diabetic chronic kidney disease (principal); E11.69 Type 2 diabetes mellitus with other specified complication; E11.51 Type 2 diabetes mellitus with diabetic peripheral angiopathy without gangrene
CPT/HCPCS: 83036; 85007; 85027

== ENCOUNTER 2024-10-06 08:50 | Day surgery (SDC) | payer MEDICARE, OTHER ==
[~2024-10-06] VITALS: Ht 165.1 cm; Wt 95.0 kg
[2024-10-06] MEDS ORDERED: NS 1,000 ML IV ONE ×2 (10:00→10:23)
[2024-10-06] MEDS ORDERED: Heparin Sodium 1000 Units/ML 10ML MDV ONE (10:00)
[2024-10-06] MEDS ORDERED: Verapamil HCL 2.5 MG/ML 2ML Injection ONE (10:08)
[2024-10-06] MEDS ORDERED: Nitroglycerin 2 MG/20 ML BTL ONE (10:09)
[2024-10-06] MEDS ORDERED: Midazolam HCl 1MG / ML 2ML Vial ONE (10:22)
[2024-10-06] MEDS ORDERED: FentaNYL Citrate 50 MCG/ML 2 ML Injection ONE (10:23)
[2024-10-06 11:19] VITALS: BP 151/69
[2024-10-06 11:30] VITALS: BP 106/85
--- NOTE | 2024-10-06 11:42 | NUR ---
PT SITTING UP IN BED EATING BREAKFAST. SITE REMAINS WNL TO LEFT FISTULA. BANDAGE IN PLACE [facility]I. REPORT CALLED TO YONY CARTER AT [facility]. TRANSPORT ARRANGED THROUGH [facility] PER FACILITY REQUEST. NO NEW MEDICATIONS . VSS.
[2024-10-06 11:48] VITALS: BP 163/63
== END 2024-10-06 12:10 | disposition home or self-care (01) ==
LOC: MHTC 08:50
DX: I12.0 Hypertensive chronic kidney disease with stage 5 chronic kidney disease or end stage renal disease (principal); N18.6 End stage renal disease; T82.898A Other specified complication of vascular prosthetic devices, implants and grafts, initial encounter; E11.22 Type 2 diabetes mellitus with diabetic chronic kidney disease; E66.9 Obesity, unspecified; E78.5 Hyperlipidemia, unspecified; Z91.030 Bee allergy status; Z88.1 Allergy status to other antibiotic agents; Z88.5 Allergy status to narcotic agent; Z79.4 Long term (current) use of insulin; Z79.01 Long term (current) use of anticoagulants; Z79.899 Other long term (current) drug therapy
CPT/HCPCS: 37607; 76937; 99152; C1769; C1887; C1894; J1644; J2250; J3010; J7030

== ENCOUNTER 2024-12-19 13:45 | Emergency (ER) | payer MEDICARE, OTHER ==
[~2024-12-19] VITALS: Ht 165.1 cm; Wt 92.1 kg
[2024-12-19] MEDS ORDERED: OZEMPIC1 MG/0.72 SC (15:12)
[2024-12-19] MEDS ORDERED: METO5A PO (15:15)
[2024-12-19 15:46] LABS: BASOPHILS ABSOLUTE AUTO 0.05 K/mm3 (0.00-0.23); BASOPHILS PERCENT AUTO 0 % (0-2); EOSINOPHILS ABSOLUTE AUTO 0.15 K/mm3 (0.00-0.68); EOSINOPHILS PERCENT AUTO 1 % (0-6); Hematocrit 35.0 % (33.0-51.0); Hemoglobin 11.2 g/dL (11.5-16.0); IMMATURE GRAN ABSOLUTE AUTO 0.04 K/mm3 (0.00-0.10); IMMATURE GRAN PERCENT AUTO 0 % (0-1); LYMPHOCYTES ABSOLUTE AUTO 2.14 K/mm3 (0.84-5.20); LYMPHOCYTES PERCENT AUTO 18 % (21-46); MONOCYTES ABSOLUTE AUTO 0.80 K/mm3 (0.16-1.47); MONOCYTES PERCENT AUTO 7 % (4-13); Mean Corpuscular HGB Conc 32.0 g/dL (31.5-36.5); Mean Corpuscular Volume 91 fL (80-100); NEUTROPHILS ABSOLUTE AUTO 8.74 K/mm3 (1.96-9.15); NEUTROPHILS PERCENT AUTO 73 % (41-73); NRBC ABSOLUTE 0.00 K/mm3 (0.00-0.02); NRBC Auto 0.0 /100 WBC (0.0-0.2); Platelet Count 308 K/mm3 (150-400); RDW Coefficient Variation 13.9 % (11.7-14.2); RDW Standard Deviation 46.4 fL (35.1-46.3)
[2024-12-19 16:23] LABS: Alanine Aminotransfer (ALT/SGP 11.0 U/L (12-78); Albumin, Blood 3.5 g/dL (3.4-5.0); Albumin/Globulin Ratio 0.9 (0.8-1.8); Anion Gap 10.0 mmol/L (3-11); Aspartate Aminotrans (AST/SGOT 10.0 U/L (12-37); Bilirubin, Total 0.4 mg/dL (0.1-1.0); Blood Urea Nitrogen 55.0 mg/dL (8-24); CO2, Blood 31.0 mmol/L (21-32); Calcium, Blood 9.3 mg/dL (8.5-10.1); Chloride, Blood 97.0 mmol/L (98-108); Creatinine, Blood 7.87 mg/dL (0.40-1.00); Globulin, Blood 4.1 g/dL (2.2-4.0); Glucose, Blood 139.0 mg/dL (70-99); Magnesium, Blood 2.0 mg/dL (1.6-2.4); Potassium, Blood 4.6 mmol/L (3.5-5.5); Sodium, Blood 133.0 mmol/L (136-145); Total Protein, Blood 7.6 g/dL (6.4-8.2)
[2024-12-19 18:49] VITALS: BP 101/62
== END 2024-12-19 18:49 | disposition home or self-care (01) ==
LOC: ER 13:45
PROVIDERS: Emergency Medicine
DX: R11.2 Nausea with vomiting, unspecified (principal); C34.02 Malignant neoplasm of left main bronchus; J90 Pleural effusion, not elsewhere classified; J96.91 Respiratory failure, unspecified with hypoxia; E11.22 Type 2 diabetes mellitus with diabetic chronic kidney disease; I12.0 Hypertensive chronic kidney disease with stage 5 chronic kidney disease or end stage renal disease; N18.6 End stage renal disease; D63.1 Anemia in chronic kidney disease; I25.10 Atherosclerotic heart disease of native coronary artery without angina pectoris; K21.9 Gastro-esophageal reflux disease without esophagitis; G40.909 Epilepsy, unspecified, not intractable, without status epilepticus; F17.210 Nicotine dependence, cigarettes, uncomplicated; Z99.2 Dependence on renal dialysis; Z86.73 Personal history of transient ischemic attack (TIA), and cerebral infarction without residual deficits; Z88.5 Allergy status to narcotic agent; Z88.8 Allergy status to other drugs, medicaments and biological substances; Z91.030 Bee allergy status; Z91.038 Other insect allergy status; Z79.01 Long term (current) use of anticoagulants; Z79.4 Long term (current) use of insulin; Z79.85 Long-term (current) use of injectable non-insulin antidiabetic drugs; Z79.02 Long term (current) use of antithrombotics/antiplatelets; Z79.899 Other long term (current) drug therapy
CPT/HCPCS: 70490; 71250; 74176; 80053; 83605; 83690; 83735; 85025; 99284-25